=== PATIENT | female | born 1965 | race African-American/Black ===

== ENCOUNTER 2023-08-21 09:58 | Outpatient (AMB) | payer OTHER, SELFPAY ==
[2023-08-21 10:06] VITALS: BP 128/80; PULSE 80; RESP 14; TEMP 37.2; O2SAT 98; BMI 26.9
--- NOTE | 2023-08-21 10:06 | MHC.PC.OV ---
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 Rebolledo Last office visit/CPE: 6 mos CPE almost a year Acute issue(s): Diabetes -A1c today 08/21/23 9.4%. Low back pain w/ sciatica and had PT which helped. PMHx: DM2, Back pain, Asthma SurgHx: Tubal Ligation FHx: Mom: Blood disease. Pancreatic CA. Sister: Bone CA SocHx: Quit cigs > 20 years ago, EtOH: 1-2x per week 1-2 dr. EARLY Medical History (Updated 08/21/23 @ 10:42 by Lexx Mccormack) Back disorder Arthritis Diabetes Asthma Surgical History (Updated 08/21/23 @ 10:18 by Shelly Stapleton) H/O tubal ligation Family History (Updated 08/21/23 @ 10:23 by Shelly Stapleton) Mother Cancer Sister Cancer Social History Housing: House Alcohol intake: current Alcohol intake frequency: a few times a month Alcohol type: wine and hard liquor Patient Tobacco Use Status: Former Tobacco user Tobacco use type: Cigarette Years Smoked: 2 e-Cigarette/Vaping Use: Never Used service: No Current occupational status: employed Current occupation: [employer] Current occupational exposures/hazards: No Cognitive needs: No Hearing needs: No Vision needs: No Questionnaire PHQ-9 Over the last 2 weeks, how often have you been bothered by any of the following problems? 1. Little interest or pleasure in doing things: several days 2. Feeling down, depressed, or hopeless: several days 3. Trouble falling or staying asleep, or sleeping too much: several days 4. Feeling tired or having little energy: several days 5. Poor appetite or overeating: several days 6. Feeling bad about yourself - or that you are a failure or have let yourself or your family down: not at all 7. Trouble concentrating on things, such as reading the newspaper or watching television: several days 8. Moving or speaking so slowly that other people could have noticed. Or the opposite - being so fidgety or restless that you have been moving around a lot more than usual: not at all 9. Thoughts that you would be better off or of hurting yourself in some way: not at all Total score: 6 Depression Screening Interpretation: Positive 41557 - PHQ-9 Billing: Yes Source: Developed by Drs. Gavin Herrera, Sachi Snyder, Wayne Ann and colleagues, with an educational marina from [employer]. Thrive Questionnaire Date Thrive assessed: 08/21/23 I am a: Patient What is your living situation today?: I have a steady place to live Within the past 12 months, did the food you bought not last and you didn't have the money to get more?: Never true Within the past 12 months, did you worry whether your food would run out before you got money to buy more?: Never true Do you have trouble paying for medicines?: No Do you have trouble getting transportation to medical appointments?: No Do you have trouble paying your heating and electricity bill?: No Do you have trouble taking care of your child, family member or friend?: No Do you have trouble with day-to-day activities such as bathing, preparing meals, shopping, managing finances, etc.?: No Are you currently unemployed and looking for a job?: No Are you interested in more education?: No Please select the resources that you would like help with: None Currently or been in a relationship where the following occur: no concerns reported AUDIT C Alcohol Use Questionnaire (AUDIT-C) 1. How often do you have a drink containing alcohol?: 2-4 times a month 2. How many drinks containing alcohol do you have on a typical day when you are drinking?: 1 or 2 3. How often do you have six or more drinks on one occasion?: Never Total Score: 2 ASHLEY-7 AMB Questionnaire ASHLEY-7 Date ASHLEY - 7 assessed: 08/21/23 Feeling nervous, anxious, or on edge: 1 = Several days Not being able to stop or control worryin = Not at all Worrying too much about different things: 1 = Several days Trouble relaxin = Several days Being so restless that it is hard to sit still: 0 = Not at all Becoming easily annoyed or irritable: 0 = Not at all Feeling afraid as if something awful might happen: 1 = Several days Total ASHLEY-7 score (0-4 normal; 5-9 mild; 10-14 moderate; 15-21 severe): 4 Source: Developed by Drs. Gavin Herrera, Sachi Snyder, Wayne Ann and colleagues, with an educational marina from [employer]. ASHLEY-7 Assessment Billing ASHLEY-7 Assessment Tool: ASHLEY-7 Assessment 36136 Review of Systems Const Denies chills, Denies fatigue, Denies fever(s), Denies headache(s) and Denies weakness ENT Denies dizziness and Denies headache(s) Card Denies chest pain, Denies lightheadedness, Denies dyspnea and Denies other (Palpitations) Resp Denies cough, Denies dyspnea, Denies wheezing and Denies other ( shortness of breath) Musc Denies numbness and Denies tingling Neuro Denies dizziness, Denies headache(s), Denies numbness, Denies tingling, Denies paresthesias and Denies weakness Psych Denies anxiety and Denies depression Endo Denies fatigue Aller/Immun Denies wheezing Physical exam (Primary Care) Vital Signs: Last Vital Signs Temp 98.9 F 08/21/23 10:06 Pulse 80 08/21/23 10:06 Resp 14 08/21/23 10:06 BP 128/80 08/21/23 10:06 Pulse Ox 98 08/21/23 10:06 Oxygen Delivery Method Room Air 08/21/23 10:06 BMI result Body Mass Index 26.9 Tobacco/Smoking Status: Tobacco use Status Tobacco use date assessed 08/21/23 08/21/23 10:20 Patient Tobacco Use Status Former Tobacco user 08/21/23 10:24 Tobacco use type Cigarette 08/21/23 10:24 e-Cigarette/Vaping Use Never Used 08/21/23 10:24 PHQ-9: PHQ-9 Score PHQ-9: Total score 6 08/21/23 10:30 Depression Screening Interpretation: Positive Thrive Assessment: Date of Thrive Assessment Date Thrive assessed 08/21/23 08/21/23 10:26 Currently or been in a relationship where the following occur: no concerns reported Const General: no acute distress and well developed Nutritional Appearance: well nourished Orientation/consciousness: patient oriented x3 HENMT Head: Yes normocephalic and Yes atraumatic Eyes General: appearance normal, both eyes and all related structures Pupils: Equal, round and reactive pupils present EOM: EOMs intact bilaterally Resp Effort & Inspection: normal respiratory effort Auscultation: clear to auscultation bilaterally Cardio Rate: regular rate Rhythm: regular rhythm Heart sounds: S1 normal heart sound present, S2 normal heart sound present, no gallops, no murmurs and no rubs Neuro General: patient oriented x3 and gait normal Cranial nerves: Yes Equal, round and reactive pupils present Psych Affect: normal affect Results AMB Hemoglobin A1c AMB Hemoglobin A1c 9.4 % Last Edit by Shelly Stapleton on 08/21/23 10:31 Assessment and Plan Assessment & Plan (1) Diabetes: Code(s): E11.9 - Type 2 diabetes mellitus without complications Plan: A1c 9.4% today. Goal is less than 7.0% She notes that she has not been very consistent with her medication. She will work on improving consistency. Will recheck at her next visit in about 2 months If not significantly improved, will adjust her medications. (2) Back pain: Code(s): M54.9 - Dorsalgia, unspecified Plan: Chronic low back pain with radiation around right hip and right lower quadrant. Possible right hypogastric nerve impingement as well as sciatica. Referred to physiatry Continue ice and heat. Continue exercises learned in physical therapy Continue NSAIDs. (3) Asthma: Code(s): J45.909 - Unspecified asthma, uncomplicated Plan: History of asthma No exacerbation at present. Will give her a ProAir inhaler (4) Laboratory exam ordered as part of routine general medical examination: Code(s): Z00.00 - Encounter for general adult medical examination without abnormal findings Plan: Check labs Orders: Orders Comprehensive [place]. Panel Fast Today Z00.00 - Encounter for general adult medical examination without abnormal findings Lipid Panel Today Z00.00 - Encounter for general adult medical examination without abnormal findings Microalbumin, Random (w Creat) Today I10 - Essential (primary) hypertension TSH reflex Free T4 Today Z00.00 - Encounter for general adult medical examination without abnormal findings UA and rflx microscopic Today Z00.00 - Encounter for general adult medical examination without abnormal findings Vitamin B12 and Folate Today E53.8 - Deficiency of other specified B group vitamins Vitamin D 25-OH Total Today E55.9 - Vitamin D deficiency, unspecified Complete Blood Count Auto Diff Today Z00.00 - Encounter for general adult medical examination without abnormal findings Medications: New albuterol sulfate 90 mcg/actuation (ProAir HFA) 2 puffs inhalation Q4-6H PRN 8.5 grams 4RF shortness of breath or wheezing 30 days Coding Level of Care Code New Pt Level 3 (86362) Diagnoses Diabetes E11.9 Back pain M54.9 Asthma J45.909 Laboratory exam ordered as part of routine general medical examination Z00.00 Additional Codes ASHLEY-7 Assessment Billing - ASHLEY-7 Assessment Tool: ASHLEY-7 Assessment [id number] ([id number])
== END 2023-08-21 11:08 | disposition home or self-care (01) ==
PROVIDERS: PCP Family Medicine; Visit Provider Family Medicine
DX: E11.9 Type 2 diabetes mellitus without complications (principal); M54.9 Dorsalgia, unspecified; J45.909 Unspecified asthma, uncomplicated; Z00.00 Encounter for general adult medical examination without abnormal findings
CPT/HCPCS: 99203

== ENCOUNTER 2023-10-15 11:16 | Outpatient (REF) | payer OTHER, SELFPAY ==
[2023-10-15 13:15] LABS: MANUAL DIFF FLAG NO
[2023-10-15 13:18] LABS: Appearance Urine Clear; Color Urine Yellow; Glucose Urine UA Negative (Negative); Leukocyte Esterase Urine Negative (Negative); Nitrite Urine Negative (Negative); PH 5.5 (5.0-9.0); Urine Blood Negative (Negative); Urine Ketones Negative (Negative); Urine Protein Negative (Neg-Trace)
[2023-10-15 13:27] LABS: Basophils Percent Auto 0.4 % (0-2); Eosinophils Absolute Auto 0.2 X10*3/uL (0.0-0.4); Eosinophils Percent Auto 2.3 % (0-4); Hematocrit 39.9 % (37.0-47.0); Hemoglobin 13.2 g/dl (12.0-16.0); Imm Gran Abs Auto 0.03 X10*3/uL (0.00-0.03); Imm Gran Pct Auto 0.3 % (0.0-0.4); Lymphocytes Absolute Auto 1.8 X10*3/uL (1.2-4.9); Lymphocytes Percent Auto 19.2 % (20-40); Mean Corpuscular HGB Conc 33.1 g/dl (31.0-35.0); Mean Corpuscular Volume 90.7 fL (80.0-98.0); Mean Platelet Volume 11.8 fL (9.4-12.3); Monocytes Absolute Auto 0.8 X10*3/uL (0.1-1.2); Monocytes Percent Auto 8.5 % (2-11); Neutrophils Absolute Auto 6.3 x10*3/uL (2.0-8.3); Neutrophils Percent Auto 69.3 % (45-73); Platelet Count 250 X10*3/uL (160-400); Red Cell Distribution Width 14.7 % (11.0-16.0); White Blood Count 9.1 X10*3/uL (4.8-10.8)
[2023-10-15 14:20] LABS: Creatinine Urine 103.03 mg/dL; Microalbum/Creatinine Ratio Ur 28.1 ug/mg cr (<30)
[2023-10-15 14:34] LABS: Alanine Aminotransferase 18 U/L (0-31); Albumin Level 4.4 g/dL (3.5-5.0); Alkaline Phosphatase 77 U/L (39-117); Anion Gap 11 (12-20); Aspartate Amino Transferase 16 U/L (5-31); Bilirubin Total 0.5 mg/dL (0.0-1.0); Blood Urea Nitrogen 9 mg/dL (9-16); Calcium 9.8 mg/dL (8.4-10.2); Carbon Dioxide 29 mmol/L (22-29); Chloride 104 mmol/L (96-108); Cholesterol 249 mg/dL (<200); Estimated Glomerular Filt Rate > 60; Glucose Fasting 181 mg/dL (60-99); HDL Cholesterol 57 mg/dL (>40); LDL Cholesterol Calculated 171 mg/dL (<100); Potassium 4.5 mmol/L (3.3-5.1); Sodium 139 mmol/L (135-145); TSH reflex Free T4 0.91 uIU/mL (0.32-4.0); Total Protein 7.6 g/dL (6.5-8.0); Triglycerides 106 mg/dL (<150); Vitamin D 25-OH Total 17.4 ng/mL (>30)
[2023-10-15 14:36] LABS: Folate 12.3 ng/mL (> or = 4.0); Vitamin B12 1619 pg/mL (200-900)
== END 2023-10-15 11:17 | disposition home or self-care (01) ==
LOC: HO.HMGCLDS 11:16
PROVIDERS: PCP Family Medicine; Visit Provider Family Medicine
DX: Z00.00 Encounter for general adult medical examination without abnormal findings (principal); I10 Essential (primary) hypertension; E53.8 Deficiency of other specified B group vitamins; E55.9 Vitamin D deficiency, unspecified
CPT/HCPCS: 36415; 80053; 80061; 81003; 82043; 82306; 82570; 82607; 82746; 84443; 85025

== ENCOUNTER 2023-10-23 11:57 | Outpatient (AMB) | payer OTHER, SELFPAY ==
[2023-10-23 12:07] VITALS: BP 126/80; PULSE 81; O2SAT 99; BMI 26.6
--- NOTE | 2023-10-23 12:07 | A.OFFPC_ITS ---
Vital Signs 10/23/23 12:07 Height 5 ft 9 in Weight 180 lb 6 oz BMI 26.6 BP 126/80 Blood Pressure Location Lt brachial Position Sitting Pulse 81 Pulse Source Pulse Oximeter Pulse Oximetry (%) 99 Oxygen Delivery Method Room Air Intake Visit Reasons: CPE with f/u labs and health maintenance Intake Note: Patient is here for her physical today. She still has pain in the right side of her body. Patient would like refill of Metformin. Allergies ibuprofen Allergy (Severe, Verified 10/23/23 12:09) breathing concerns Tobacco use date assessed: 08/21/23 HPI CPE with f/u labs and health maintenance HPI Details 58 y/o female presents for a CPE with f/ u labs and health maintenance. Labs were drawn 10/15/23. Reviewed labs with pt. Fasting glucose of 181. Triglycerides 106. TC 249. LDL 171. HDL 57. Low vitamin D at 17.4 ng/mL. Also f/u diabetes. Last A1c 08/21/23 9.4% and pt stated she had not been consistent with her medications. A1c today 10/23/23 is 9.1%. She is on metformin 500mg b.i.d. She states she follows up with an eye doctor for a diabetic eye exam. She reports ongoing chronic low back pain with radiation around R hip and RLQ. Had referred her to physiatry. Pt reports last pap smear was at [facility] and had one the past 2 years. She states she had a recent colonoscopy and is up to date. [facility] Medical History (Updated 10/23/23 @ 12:59 by Lexx Mccormack) Back disorder Arthritis Diabetes Asthma Surgical History (Updated 08/21/23 @ 10:18 by Shelly Stapleton CMA) H/O tubal ligation Family History (Updated 08/21/23 @ 10:23 by Shelly Stapleton CMA) Mother Cancer Sister Cancer Social History (Updated 08/21/23 @ 10:24 by Shelly Stapleton CMA) Housing: House Alcohol intake: current Alcohol intake frequency: a few times a month Alcohol type: wine and hard liquor Patient Tobacco Use Status: Former Tobacco user Tobacco use type: Cigarette Years Smoked: 2 e-Cigarette/Vaping Use: Never Used service: No Current occupational status: employed Current occupation: [employer] Current occupational exposures/hazards: No Cognitive needs: No Hearing needs: No Vision needs: No Questionnaire Thrive Questionnaire Date Thrive assessed: 08/21/23 ASHLEY-7 AMB Questionnaire ASHLEY-7 Date ASHLEY - 7 assessed: 08/21/23 Source: Developed by Drs. Gavin Herrera, Sachi Snyder, Wayne Ann and colleagues, with an educational marina from [employer]. ACT Questionnaire In the past 4 weeks, how much of the time did your asthma keep you from getting as much done at work, school or at home?: Some of the time During the past 4 weeks, how often have you had shortness of breath?: More than once a day During the past 4 weeks, how often did your asthma symptoms wake you up at night or earlier than usual in the morning?: 2-3 nights a week During the past 4 weeks, how often have you had to use your rescue inhaler or nebulizer medication?: Not at all How would you rate your asthma control during the past 4 weeks?: Somewhat controlled ACT Interpretation: Positive Score: 14 Review of Systems Const Denies chills, Denies fatigue, Denies fever(s), Denies headache(s) and Denies weakness Eyes Denies change in vision ENT Denies dizziness, Denies headache(s), Denies hearing loss, Denies nasal congestion, Denies sinus pain, Denies sinus pressure and Denies sore throat Card Denies chest pain, Denies lightheadedness, Denies dyspnea and Denies other (palpitations) Resp Denies cough, Denies dyspnea and Denies wheezing GI Reports abdominal pain, Denies melena, Denies hematochezia, Denies change in bowel habits, Denies dyspepsia and Denies nausea Denies hematuria and Denies dysuria Musc Denies abnormal gait, Reports back pain, Denies myalgias, Denies arthralgias, Denies numbness and Denies tingling Skin/Breast Denies rash, Denies unusual bruising and Denies wounds Neuro Denies abnormal gait, Denies dizziness, Denies headache(s), Denies memory loss, Denies numbness, Denies Sensory deficit (Neuro), Denies tingling and Denies weakness Psych Denies anxiety, Denies depression and Denies memory loss Endo Denies cold intolerance, Denies fatigue, Denies heat intolerance, Reports polyd ipsia and Reports polyuria Flynn/Lymph Denies easy bleeding and Denies easy bruising Aller/Immun Denies wheezing Physical exam (Primary Care) Vital Signs: Last Vital Signs Pulse 81 10/23/23 12:07 BP 126/80 10/23/23 12:07 Pulse Ox 99 10/23/23 12:07 Oxygen Delivery Method Room Air 10/23/23 12:07 BMI result Body Mass Index 26.6 Tobacco/Smoking Status: Tobacco use Status Tobacco use date assessed 08/21/23 10/23/23 12:10 Patient Tobacco Use Status Former Tobacco user 10/23/23 12:10 Tobacco use type Cigarette 10/23/23 12:10 e-Cigarette/Vaping Use Never Used 10/23/23 12:10 Thrive Assessment: Date of Thrive Assessment Date Thrive assessed 08/21/23 10/23/23 12:10 Const General: no acute distress, well developed, alert and awake Nutritional Appearance: well nourished Orientation/consciousness: patient oriented x3 HENMT Head: Yes normocephalic and Yes atraumatic Ears: hearing grossly normal bilaterally and TM's normal bilaterally General nose exam: Normal external nose present and Normal nares present Mouth: Normal oral and palatal mucosa present and moist mucous membranes Teeth and gingiva: dentition normal Throat: Yes posterior oropharynx normal Eyes General: appearance normal, both eyes and all related structures Pupils: Equal, round and reactive pupils present and Pupil accommodation reflex normal EOM: EOMs intact bilaterally Neck Neck: Yes normal visual inspection, Yes no lymphadenopathy and Yes trachea midline Thyroid: Thyroid normal Carotids: no bruits Lymphatic: no lymphadenopathy noted Chest Chest palpation & inspection: normal inspection of the chest Resp Other: Two squeaks/wheezes on L side Effort & Inspection: normal respiratory effort Auscultation: clear to auscultation bilaterally Cardio Rate: regular rate Rhythm: regular rhythm Heart sounds: S1 normal heart sound present, S2 normal heart sound present, no gallops, no murmurs and no rubs Bruits: no abdominal aortic bruits and no carotid bruits GI Palpation (GI): No Abdominal aortic bruit present, Soft to palpation, nontender, No hepatosplenomegaly present and No Rebound tenderness present Auscultation: normal bowel sounds General: Yes no CVA tenderness Back/Spine/Pelvis Back: no CVA tenderness Cervical Spine: cervical ROM normal and No Cervical spine tenderness Thoracic/Lumbar Spine: thoraco-lumbar ROM normal, No pain with thoraco-lumbar ROM, No thoracic spinal tenderness and No lumbar spinal tenderness Skin Lesions: no lesions Rashes: no rashes Trauma: no lacerations or abrasions Wounds: no wounds Nails: normal Neuro General: patient oriented x3 Cranial nerves: Yes Equal, round and reactive pupils present Cognition (Neuro): normal cognition Gait exam (Neuro): Normal gait present Motor exam (neuro): 5/5 motor strength present throughout Sensory Exam: No Sensory deficit (Neuro) Deep tendon reflexes (DTR's): Right patellar reflex intensity grade: 2+ and Left patellar reflex intensity grade: 2+ Extrem General: Yes normal to inspection and No edema Psych Appearance: grossly normal Affect: normal affect Attitude: cooperative Thought process: Normal thought process present Results AMB Hemoglobin A1c AMB Hemoglobin A1c 9.1 % Last Edit by Lashawn Soto CMA on 10/23/23 12:27 Results Reviewed Results Reviewed: Laboratory Last Values Hgb A1c (Clinic) 9.1 % (4.0-6.0) H 10/23/23 12:25 Assessment and Plan Assessment & Plan (1) Adult general medical exam: Code(s): Z00.00 - Encounter for general adult medical examination without abnormal findings Plan: 58-year-old?female?presents?for?complete?physical?exam Encouraged?healthy?diet?with?active?lifestyle?and?exercise (2) Diabetes: Code(s): E11.9 - Type 2 diabetes mellitus without complications Plan: A1c?was?9.4%?at?last?check?and?now?9.1%?with?improved?compliance?with?medication . Will?continue?metformin?but?will?add?glipizide?ER?5?mg?daily Continue?to?work?at?a?diet?lower?in?sugars?and?starches (3) Hypercholesterolemia: Code(s): E78.00 - Pure hypercholesterolemia, unspecified Plan: LDL?cholesterol 171 We?discussed?starting?a?statin?medication?now?verses?trial?of?lifestyle?changes. Patient?wou ld?like?to?trial?lifestyle?changes?for?the?next?3?months.??We?discussed?that?if? she?is?not?able?to?significantly?improve?this?we?should?use?a?medication?and?pat ient?understands. (4) Low vitamin D level: Code(s): R79.89 - Other specified abnormal findings of blood chemistry Plan: Will?give?her?a?vitamin- D?supplement?for?the?next?couple?of?months?and?then?likely?taper?this?down?to?a? regular?daily?dose?of?about?2000?IU Will?recheck?vitamin-D?level?with?her?next?lab?draw (5) Screening for colon cancer: Code(s): Z12.11 - Encounter for screening for malignant neoplasm of colon Plan: Recent?colonoscopy.??Will?request?report She?is?up-to-date (6) Abdominal pain: Code(s): R10.9 - Unspecified abdominal pain Plan: Ongoing?right?lower?quadrant?abdominal?pain?which?patient?describes?as?projectin g?through?to?her?right?lower?back. 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 Doubt?GI etiology?though?this?is?possible Possible?hypogastric?nerve?impingement Patient?also?has?some?low?back?pain?which?I?think?is?separate?from?the ?pain?that?projects?through?to?her?lower?back. She?will?see?[facility]?for?that. (7) Asthma: Code(s): J45.909 - Unspecified asthma, uncomplicated Plan: Recent?viral?illness?and?patient?has?some?wheezing?in?her?left?lung?and?a?cough. ??She?says?she?had?a?viral?illness?last?week?and?it?is?getting?better. I?advised?she?use?her?albuterol?inhaler?as?needed. (8) Back pain: Code(s): M54.9 - Dorsalgia, unspecified Plan: As?above,?I?think?this?is?separate?from?the?abdominal?pain?that?projects?through ?to?her?low?back. 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 Orders: Orders AMB Hemoglobin A1c Today Z13.9 - Encounter for screening, unspecified MM tomosynthesis screening BI Today Z12.31 - Encounter for screening mammogram for malignant neoplasm of breast XR DEXA axial skeleton Today Z78.0 - Asymptomatic menopausal state Referrals Nurse Navigator Referral E11.9 - Type 2 diabetes mellitus without complications, E78.00 - Pure hypercholesterolemia, unspecified Medications: New glipizide ER 5 mg PO DAILY 30 days 30 tabs 3RF cholecalciferol (vitamin D3) 1,250 mcg PO QWEEK 28 days 4 caps 2RF Coding Level of Care Code Est Pt Level 3 (52942) Est Pt Prev Care 40-64y(63762) Diagnoses Adult general medical exam Z00.00 Diabetes E11.9 Hypercholesterolemia E78.00 Low vitamin D level R79.89 Screening for colon cancer Z12.11 Abdominal pain R10.9 Asthma J45.909 Back pain M54.9 Breast cancer screening by mammogram Z12.31 Screening for cervical cancer Z12.4
== END 2023-10-23 13:14 | disposition home or self-care (01) ==
PROVIDERS: PCP Family Medicine; Visit Provider Family Medicine
DX: Z00.00 Encounter for general adult medical examination without abnormal findings (principal); E11.9 Type 2 diabetes mellitus without complications; E78.00 Pure hypercholesterolemia, unspecified; R79.89 Other specified abnormal findings of blood chemistry; R10.9 Unspecified abdominal pain; J45.909 Unspecified asthma, uncomplicated; M54.9 Dorsalgia, unspecified
CPT/HCPCS: 83036; 99396

== ENCOUNTER 2023-12-18 09:01 | Outpatient (REF) | payer OTHER, SELFPAY ==
--- NOTE | ~2023-12-18 | MM_ITS ---
EXAMINATION: BONE DENSITOMETRY CLINICAL INDICATION: Menopause. COMPARISON: This is the patient's baseline examination. TECHNIQUE: Using a [employer] DXA System (software version: 13.1) manufactured by [employer] dual-energy x-ray absorptiometry was performed of the lumbar spine and left hip. The images are of good technical quality. Summary results are attached. FINDINGS: LEFT FEMUR, NECK: BMD 1.025 g/cm2, Z-score -0.1, T-score -0.1, normal. LEFT FEMUR, TOTAL: BMD 1.072 g/cm2, Z-score 0.1, T-score 0.5, normal. AP SPINE L1-L4 (excluding L3): The data of L1-L4 has been changed to exclude the L3 vertebral body, because at this level may cause overestimation of lumbar spine density. BMD 1.219 g/cm2, Z-score 0.4, T-score 0.4, normal. IDENTIFIED RISK FACTORS: Early menopause, osteoporosis, secondary osteoporosis. HISTORY OF FRACTURE: None listed. MEDICATIONS: None listed. MM/XR DEXA axial skeleton IMPRESSION: 1. DIAGNOSIS: Normal bone density based on the lowest T-score value of -0.1 in the femoral neck applying World Health Organization criteria. 2. 10-YEAR FRACTURE RISK PREDICTION, FRAX: According to the guidelines, FRAX calculation should only be performed on patients in the osteopenia bone density category. Therefore, FRAX was not performed on this patient. 3. Treatment Recommendations: NOF guidelines recommend consideration for treatment in postmenopausal women and men age 50 and older presenting with the following: -A hip or vertebral (clinical or morphometric) fracture. -T-score less than or equal to -2.5 at the femoral neck or spine after appropriate evaluation to exclude secondary causes. -Low bone mass at the hip or spine and a 10-year fracture probability by FRAX of greater than or equal to 3% for hip fracture or greater than or equal to 20% for major osteoporotic fracture based on the [place] adapted WHO algorithm. 4. Other Recommendations: All treatment decisions require clinical judgment and consideration of individual patient factors, including patient preferences, comorbidities, previous drug use, risk factors not captured in the FRAX model (e.g. frailty, falls, vitamin D deficiency, increased bone turnover, interval significant decline in bone density) and possible under or overestimation of fracture risk by FRAX. FUTURE SCAN RECOMMENDATION: People with diagnosed cases of osteoporosis or at high risk for fracture should have regular bone mineral density tests. For patients eligible for Medicare, routine testing is allowed once every 2 years. The testing frequency can be increased to one year for patients who have rapidly progressing disease, those who are receiving or discontinuing medical therapy to restore bone mass, or have additional risk factors.
== END 2023-12-18 09:02 | disposition home or self-care (01) ==
LOC: HO.MAMMO 09:01
PROVIDERS: Visit Provider Family Medicine
DX: Z12.31 Encounter for screening mammogram for malignant neoplasm of breast (principal); Z13.820 Encounter for screening for osteoporosis; Z78.0 Asymptomatic menopausal state
CPT/HCPCS: 77063; 77067; 77080

== ENCOUNTER → 2023-12-18 09:30 | Outpatient (BNV) | payer OTHER, SELFPAY | PROVIDERS: Visit Provider Radiology Diagnostic Radiology | DX: Z12.31 Encounter for screening mammogram for malignant neoplasm of breast (principal) | CPT/HCPCS: 77063; 77067 ==

== ENCOUNTER 2024-02-14 08:42 | Outpatient (REF) | payer OTHER, SELFPAY ==
[2024-02-14 10:06] LABS: Alanine Aminotransferase 16 U/L (0-31); Albumin Level 4.3 g/dL (3.5-5.0); Alkaline Phosphatase 76 U/L (39-117); Anion Gap 12 (12-20); Aspartate Amino Transferase 13 U/L (5-31); Bilirubin Total 0.3 mg/dL (0.0-1.0); Blood Urea Nitrogen 16 mg/dL (9-16); Calcium 9.7 mg/dL (8.4-10.2); Carbon Dioxide 29 mmol/L (22-29); Chloride 104 mmol/L (96-108); Cholesterol 224 mg/dL (<200); Estimated Glomerular Filt Rate > 60; Glucose Fasting 187 mg/dL (60-99); HDL Cholesterol 58 mg/dL (>40); LDL Cholesterol Calculated 135 mg/dL (<100); Potassium 4.7 mmol/L (3.3-5.1); Sodium 140 mmol/L (135-145); Total Protein 7.4 g/dL (6.5-8.0); Triglycerides 156 mg/dL (<150)
[2024-02-14 10:14] LABS: Vitamin D 25-OH Total 60.8 ng/mL (>30)
== END 2024-02-14 08:43 | disposition home or self-care (01) ==
LOC: HO.LAB 08:42
PROVIDERS: PCP Family Medicine; Visit Provider Family Medicine
DX: Z00.00 Encounter for general adult medical examination without abnormal findings (principal); E78.00 Pure hypercholesterolemia, unspecified; E55.9 Vitamin D deficiency, unspecified; R79.89 Other specified abnormal findings of blood chemistry
CPT/HCPCS: 36415; 80053; 80061; 82306

== ENCOUNTER 2024-03-17 09:44 | Outpatient (AMB) | payer OTHER, SELFPAY ==
[2024-03-17 09:49] VITALS: BP 128/72; PULSE 63; O2SAT 98; BMI 27.3
--- NOTE | 2024-03-17 09:49 | MHC.PC.OV ---
Vital Signs 03/17/24 09:49 Height 5 ft 9 in Weight 185 lb 2 oz BMI 27.3 BP 128/72 Blood Pressure Location Lt brachial Position Sitting Pulse 63 Pulse Source Pulse Oximeter Pulse Oximetry (%) 98 Oxygen Delivery Method Room Air Intake Visit Reasons: f/u hypercholesterolemia and diabetes Intake Note: Patient is here to follow up on hypercholesterolemia and diabetes, needs new blood sugar sugar devin and strips. She would like a freestyle Sung devin. She would also like refill on vitamin D3. She would like to talk about bilateral foot pain. Allergies ibuprofen Allergy (Severe, Verified 03/17/24 09:58) breathing concerns Tobacco use date assessed: 08/21/23 Dental Screening Dental Screen Date: 08/21/23 Did you have a dental visit in the last 12 months?: No Did you have a dental problem in the last 6 months where you did not have access to dental care?: No Was dental information given to patient?: Patient has dentist HPI f/u hypercholesterolemia and diabetes HPI Details 59 y/o female presents to f/u hypercholesterolemia and diabetes. Also f/u low vitamin D. Labs were drawn 02/14/24. Reviewed labs with pt. Fasting glucose of 187. Triglycerides 156. TC 224. LDL 135 which improved from 171 in September. HDL 58. Vitamin D level improved from 17.4 in September to 60.8. Last A1c 11/22/23 9.1%. Had added glipizide 5mg to her metformin. A1c today 03/17/24 is 9.1%. Pt has gained some weight since last office visit. Pt has complaints of bilateral foot pain. Pt describes pain as pins and needles and states she feels like she is walking on julio. Pt notes pain had been ongoing for more than a year. [facility] Medical History Back disorder Arthritis Diabetes Asthma Surgical History H/O tubal ligation Family History (Updated 03/17/24 @ 10:01 by Lashawn Soto CMA) Mother Cancer Sister Cancer Social History Housing: House Alcohol intake: current Alcohol intake frequency: a few times a month Alcohol type: wine and hard liquor Patient Tobacco Use Status: Former Tobacco user Tobacco use type: Cigarette Years Smoked: 2 e-Cigarette/Vaping Use: Never Used service: No Current occupational status: employed Current occupation: [employer] Current occupational exposures/hazards: No Cognitive needs: No Hearing needs: No Vision needs: No Questionnaire PHQ-9 Over the last 2 weeks, how often have you been bothered by any of the following problems? 1. Little interest or pleasure in doing things: not at all 2. Feeling down, depressed, or hopeless: not at all 3. Trouble falling or staying asleep, or sleeping too much: not at all 4. Feeling tired or having little energy: not at all 5. Poor appetite or overeating: not at all 6. Feeling bad about yourself - or that you are a failure or have let yourself or your family down: not at all 7. Trouble concentrating on things, such as reading the newspaper or watching television: not at all 8. Moving or speaking so slowly that other people could have noticed. Or the opposite - being so fidgety or restless that you have been moving around a lot more than usual: not at all 9. Thoughts that you would be better off or of hurting yourself in some way: not at all Total score: 0 Depression Screening Interpretation: Negative Depression Screening Done: Yes Source: Developed by Drs. Gavin Herrera, Sachi Snyder, Wayne Ann and colleagues, with an educational marina from [employer]. Thrive Questionnaire Date Thrive assessed: 08/21/23 AUDIT C Alcohol Use Questionnaire (AUDIT-C) 1. How often do you have a drink containing alcohol?: Monthly or less 2. How many drinks containing alcohol do you have on a typical day when you are drinking?: 1 or 2 3. How often do you have six or more drinks on one occasion?: Never Total Score: 1 ASHLEY-7 AMB Questionnaire ASHLEY-7 Date ASHLEY - 7 assessed: 03/17/24 Feeling nervous, anxious, or on edge: 0 = Not at all Not being able to stop or control worryin = Not at all Worrying too much about different things: 0 = Not at all Trouble relaxin = Not at all Being so restless that it is hard to sit still: 0 = Not at all Becoming easily annoyed or irritable: 0 = Not at all Feeling afraid as if something awful might happen: 0 = Not at all Total ASHLEY-7 score (0-4 normal; 5-9 mild; 10-14 moderate; 15-21 severe): 0 Source: Developed by Drs. Gavin Herrera, Sachi Snyder, Wayne Ann and colleagues, with an educational marina from [employer]. ACT Questionnaire In the past 4 weeks, how much of the time did your asthma keep you from getting as much done at work, school or at home?: None of the time During the past 4 weeks, how often have you had shortness of breath?: Not at all During the past 4 weeks, how often did your asthma symptoms wake you up at night or earlier than usual in the morning?: Not at all During the past 4 weeks, how often have you had to use your rescue inhaler or nebulizer medication?: Not at all How would you rate your asthma control during the past 4 weeks?: Well controlled Score: 24 Review of Systems Const Denies chills, Denies fatigue, Denies fever(s), Denies headache(s) and Denies weakness ENT Denies dizziness and Denies headache(s) Card Denies dyspnea Resp Denies cough, Denies dyspnea, Denies wheezing and Denies other (shortness of breath) Musc Denies numbness and Denies tingling Neuro Denies dizziness, Denies headache(s), Denies numbness, Denies tingling and Denies weakness Psych Denies anxiety and Denies depression Endo Denies fatigue Aller/Immun Denies wheezing Physical exam (Primary Care) Vital Signs: Last Vital Signs Pulse 63 03/17/24 09:49 BP 128/72 03/17/24 09:49 Pulse Ox 98 03/17/24 09:49 Oxygen Delivery Method Room Air 03/17/24 09:49 BMI result Body Mass Index 27.3 Tobacco/Smoking Status: Tobacco use Status Tobacco use date assessed 08/21/23 03/17/24 09:54 Patient Tobacco Use Status Former Tobacco user 03/17/24 09:54 Tobacco use type Cigarette 03/17/24 09:54 e-Cigarette/Vaping Use Never Used 03/17/24 09:54 PHQ-9: PHQ-9 Score PHQ-9: Total score 0 03/17/24 10:15 Depression Screening Interpretation: Negative Thrive Assessment: Date of Thrive Assessment Date Thrive assessed 08/21/23 03/17/24 09:54 Const General: well developed; No acute distress Nutritional Appearance: well nourished Orientation/consciousness: patient oriented x3 [facility] Head: Yes normocephalic and Yes atraumatic Eyes General: appearance normal, both eyes and all related structures Pupils: Equal, round and reactive pupils present EOM: EOMs intact bilaterally Resp Effort & Inspection: normal respiratory effort Auscultation: clear to auscultation bilaterally Cardio Rate: regular rate Rhythm: regular rhythm Heart sounds: S1 normal heart sound present, S2 normal heart sound present, no gallops, no murmurs and no rubs Neuro General: patient oriented x3 and gait normal Cranial nerves: Yes Equal, round and reactive pupils present Psych Affect: normal affect Results AMB Hemoglobin A1c AMB Hemoglobin A1c 9.1 % Last Edit by Lashawn Soto CMA on 03/17/24 10:17 Assessment and Plan Assessment & Plan (1) Diabetes: Code(s): E11.9 - Type 2 diabetes mellitus without complications Plan: A1c?still?9.1%?despite?adding?glipizide.??Goal?is?less?than?7.0%. She?has?gained?some?weight?since?last?visit?as?well. Encouraged?ongoing?diet?low?in?sugars?and?starches Encouraged?exercise?and?weight?loss Will?increase?metformin?from?500?mg?b.i.d.?to?750?mg?b.i.d..??Continue?glipizide?ER?5?mg?daily (2) Hypercholesterolemia: Code(s): E78.00 - Pure hypercholesterolemia, unspecified Plan: Lipids?are?still?significantly?elevated.??Will?discuss?at?her?next?visit (3) Low vitamin D level: Code(s): R79.89 - Other specified abnormal findings of blood chemistry Plan: Vitamin-D?is?improved Will?switch?her?vitamin-D?supplement?from?high-dose?weekly?cholecalciferol?to?a?daily?2000?IU?dose. (4) Bilateral foot pain: Code(s): M79.671 - Pain in right foot; M79.672 - Pain in left foot Plan: Bilateral?foot?paresthesias?likely?secondary?to?neuropathy?from?poorly?controlled?diabetes. Treating?diabetes Will?also?give?her?gabapentin?which?he?can?try?at?bedtime?and?if?it?is?helping?she?can?use?it?during?the?day?if?not?causing?too?much?drowsiness. (5) Screening for colon cancer: Code(s): Z12.11 - Encounter for screening for malignant neoplasm of colon Plan: Patient?says?she?will?get?report?as?we?have?tried?the?surrounding?hospitals?without?any?records?found. Orders: Orders AMB Hemoglobin A1c Today Z13.9 - Encounter for screening, unspecified Medications: New blood-glucose meter ([employer] Ultra2 Meter) As directed 1 ea 0RF gabapentin 300 mg PO BID 30 days 60 caps 2RF blood sugar diagnostic (ID[employer]Touch Ultra Test strips) To test blood sugar daily As directed, 90 days 100 ea 4RF E11.9 - Type 2 diabetes mellitus without complications lancets ([employer] Delica Safety Lancet) To test blood sugar daily, As directed, 90 days 100 ea 0RF E11.9 - Type 2 diabetes mellitus without complications cholecalciferol (vitamin D3) 50 mcg PO DAILY 30 days 30 caps 3RF Changed From metformin 500 mg PO BID 180 tabs 0RF To metformin 750 mg (1.5 x 500 mg) PO BID 90 days 270 tabs 2RF Discontinued cholecalciferol (vitamin D3) Discontinued Reason: Doctor's Order 1,250 mcg PO QWEEK 28 days 4 caps 2RF Coding Level of Care Code Est Pt Level 4 (41749) Diagnoses Diabetes E11.9 Hypercholesterolemia E78.00 Low vitamin D level R79.89 Bilateral foot pain M79.671; M79.672 Screening for colon cancer Z12.11
== END 2024-03-17 10:30 | disposition home or self-care (01) ==
PROVIDERS: PCP Family Medicine; Visit Provider Family Medicine
DX: E11.9 Type 2 diabetes mellitus without complications (principal); E78.00 Pure hypercholesterolemia, unspecified; R79.89 Other specified abnormal findings of blood chemistry; M79.671 Pain in right foot; M79.672 Pain in left foot
CPT/HCPCS: 83036; 99214

== ENCOUNTER 2024-08-06 09:31 | Outpatient (AMB) | payer OTHER, SELFPAY ==
--- NOTE | 2024-08-06 09:33 | A.OFFVIS_ITS ---
Vital Signs 08/06/24 09:35 Height 5 ft 9 in Weight 189 lb 9.561 oz BMI 28.0 BP 126/70 Blood Pressure Location Rt brachial Position Sitting Pulse 71 Pulse Source Pulse Oximeter Intake Visit Reasons: DM/LVM Intake Note: NEW Patient presents today to establish treatment for Type 2 Diabetes Mellitus: Last Diabetic eye exam was on: DUE Last Podiatry exam was on: Does not see a Hose Maker Most recent HbA1c: 8.2%, 08/06/2024 Random Glucose- 141 mg/dL, Today Exploitation Analyst Required: No Accompanied by: Self / Same As Patient Allergies ibuprofen Allergy (Severe, Verified 08/06/24 09:34) breathing concerns Medication List - Last Reconciled 08/06/24 by Helen Santana MD acetaminophen 1,000 mg PO Q6H PRN albuterol sulfate 90 mcg/actuation (ProAir HFA) 2 puffs inhalation Q4-6H PRN 30 days blood sugar diagnostic ([employer] Ultra Test strips) To test blood sugar daily As directed, 90 days blood-glucose meter ([employer] Ultra2 Meter) As directed cholecalciferol (vitamin D3) 50 mcg PO DAILY 30 days gabapentin 300 mg PO BID 30 days glipizide ER 5 mg PO DAILY 30 days lancets ([employer] Delica Safety Lancet) To test blood sugar daily, As directed, 90 days metformin 750 mg (1.5 x 500 mg) PO BID 90 days naproxen sodium (Aleve) 440 mg PO DAILY HPI Comments Details: 59 year old female with type 2 diabetes presenting for follow up Medical history: HTN, HLD and depression Initially diagnosed with T2DM- 56 years old Current medications: Metformin 750 mg twice daily (increased in february), glipizde ER 5mg daily POC A1C 8.2%. from 9.1% in February Micro/macrovascular complications: neuropathy. On gabapentin Discussed ROLAND, statin recommendations Denies any low sugars or symptoms of lows. Has hypoglycemia awareness. Not much diabetes in the family Eye exam is due-she will call to schedule She has seen a annual giving officer in the past with attention to diabetes Declines diabetic education ROS CONSTITUTIONAL: Denies weight loss, fever and chills. HEENT: Denies changes in vision and hearing. RESPIRATORY: Denies SOB and cough. CV: Denies palpitations and CP GI: Denies abdominal pain, nausea, vomiting and diarrhea. : Denies dysuria and urinary frequency. MSK: Denies new myalgia and joint pain. SKIN: Denies rash and pruritus. NEUROLOGICAL: Denies headache PSYCHIATRIC: Denies recent changes in mood. PHYSICAL EXAM: GENERAL: Alert and oriented x 3. NAD EYES: EOMI. Anicteric. HENT: Moist mucous membranes. Thyroid nodular right LUNGS: Clear to auscultation bilaterally. CARDIOVASCULAR: Regular rate and rhythm. No murmur. No JVD. ABDOMEN: Soft, non-tender +bs EXTREMITIES: No edema. Non-tender. SKIN: No rashes or lesions. Warm. NEUROLOGIC: No focal neurological deficits. CN II-XII grossly intact PSYCHIATRIC: Cooperative. Appropriate mood and affect [facility] Medical History Back disorder Arthritis Diabetes Asthma Surgical History H/O tubal ligation Family History Mother Cancer Sister Cancer Social History Housing: House Alcohol intake: current Alcohol intake frequency: a few times a month Alcohol type: wine and hard liquor Patient Tobacco Use Status: Former Tobacco user Tobacco use type: Cigarette Years Smoked: 2 e-Cigarette/Vaping Use: Never Used service: No Current occupational status: employed Current occupation: [employer] Current occupational exposures/hazards: No Cognitive needs: No Hearing needs: No Vision needs: No Physical Exam Vital Signs: Last Vital Signs Pulse 71 08/06/24 09:35 BP 126/70 08/06/24 09:35 BMI result Body Mass Index 28.0 Results AMB Hemoglobin A1c AMB Hemoglobin A1c 8.2 % Last Edit by GIAN Park on 08/06/24 09:52 Results Reviewed Results Reviewed: Laboratory Last Values Glucose (Clinic) 141 mg/dL (60-115) H 08/06/24 09:40 Hgb A1c (Clinic) 8.2 % (4.0-6.0) H 08/06/24 09:51 Assessment & Plan Assessment & Plan (1) Diabetes: Code(s): E11.9 - Type 2 diabetes mellitus without complications Category: Medical Qualifiers: Diabetes mellitus complication status: with hyperglycemia Diabetes mellitus mcfp insulin use: without emt intermediate use Diabetes mellitus type: type 2 Qualified Code(s): E11.65 - Type 2 diabetes mellitus with hyperglycemia Plan: Improved but still suboptimal control Discussed goal A1C <7.0%. Discussed the A1C test itself. Discussed recommendation for ROLAND and statin. Discussed LDL goal<100 No hypoglycemia. Will increase metformin to 1000mg twice daily and glipizide to 10mg daily She will return in one month with log of fasting blood glucose and meter Agrees to call eye doctor for visit (2) Type 2 diabetes mellitus: Code(s): E11.9 - Type 2 diabetes mellitus without complications Category: Medical Qualifiers: Diabetes mellitus complication detail: with polyneuropathy Diabetes mellitus complication status: with neurologic complications Diabetes mellitus emt intermediate insulin use: without mcfp use Qualified Code(s): E11.42 - Type 2 diabetes mellitus with diabetic polyneuropathy Plan: see above (3) Neuropathy due to type 2 diabetes mellitus: Code(s): E11.40 - Type 2 diabetes mellitus with diabetic neuropathy, unspecified Category: Medical Plan: Improve glycemic control. Refilled gabapentin. Orders: Orders AMB Hemoglobin A1c Today E11.9 - Type 2 diabetes mellitus without complications Medications: New metformin 1,000 mg PO BID 180 tabs 3RF 90 days glipizide ER 10 mg PO DAILY 90 tabs 3RF Changed From gabapentin 300 mg PO BID 30 days 60 caps 2RF To gabapentin 300 mg PO BID 180 caps 3RF 90 days Discontinued metformin Discontinued Reason: Doctor's Order 750 mg (1.5 x 500 mg) PO BID 90 days 270 tabs 2RF glipizide ER Discontinued Reason: Doctor's Order 5 mg PO DAILY 30 days 30 tabs 1RF Coding Level of Care Code Est Pt Level 5 (10179) Diagnoses Type 2 diabetes mellitus with hyperglycemia, without long-term current use of insulin E11.65 Diabetes mellitus complication status: with hyperglycemia Diabetes mellitus mcfp insulin use: without mcfp use Diabetes mellitus type: type 2 Type 2 diabetes mellitus with diabetic polyneuropathy, without long-term current use of insulin E11.42 Diabetes mellitus complication detail: with polyneuropathy Diabetes mellitus complication status: with neurologic complications Diabetes mellitus emt intermediate insulin use: without emt intermediate use Neuropathy due to type 2 diabetes mellitus E11.40 Time Spent (min) 50
[2024-08-06 09:35] VITALS: BP 126/70; PULSE 71; BMI 28.0
[2024-08-06 09:44] LABS: Glucose, Whole Blood 141 mg/dL (60-115)
== END 2024-08-06 10:15 | disposition home or self-care (01) ==
PROVIDERS: PCP Family Medicine; Visit Provider Internal Medicine
DX: E11.65 Type 2 diabetes mellitus with hyperglycemia (principal); E11.42 Type 2 diabetes mellitus with diabetic polyneuropathy; E11.40 Type 2 diabetes mellitus with diabetic neuropathy, unspecified
CPT/HCPCS: 99215

== ENCOUNTER → 2024-08-06 09:31 | Outpatient (BNVA) | payer OTHER, SELFPAY | PROVIDERS: PCP Family Medicine; Visit Provider Internal Medicine | DX: E11.65 Type 2 diabetes mellitus with hyperglycemia (principal); E11.42 Type 2 diabetes mellitus with diabetic polyneuropathy; Z79.84 Long term (current) use of oral hypoglycemic drugs | CPT/HCPCS: 82947; 83036 ==

== ENCOUNTER 2024-09-10 09:05 | Outpatient (AMB) | payer OTHER, SELFPAY ==
--- NOTE | 2024-09-10 09:06 | A.OFFVIS_ITS ---
Vital Signs 09/10/24 09:08 Height 5 ft 9 in Weight 191 lb 12.835 oz BMI 28.3 BP 128/86 Blood Pressure Location Rt brachial Position Sitting Pulse 74 Pulse Source Pulse Oximeter Intake Visit Reasons: DM/CONFIRMED Intake Note: Patient presents today for a follow-up on Type 2 Diabetes Mellitus: Last Diabetic eye exam was on: DUE Last Podiatry exam was on: Does not see a Inspector [employer] Most recent HbA1c: 8.2%, 08/06/2024 Random Glucose- 149 mg/dL, Today Etl Developer Required: No Accompanied by: Self / Same As Patient Allergies ibuprofen Allergy (Severe, Verified 08/06/24 09:34) breathing concerns HPI Comments Details: 59 year old female with type 2 diabetes presenting for follow up Medical history: HTN, HLD and depression Initially diagnosed with T2DM- 56 years old Current medications: Metformin 1000mg once daily-twice daily prescribed but she could not tolerate, glipizde ER 10mg daily. POC A1C last month 8.2%. from 9.1% in February. Didnt bring meter. Highest fasting was 170 said most readings ~140. Micro/macrovascular complications: neuropathy. On gabapentin Discussed ROLAND, statin recommendations Denies any low sugars or symptoms of lows. Has hypoglycemia awareness. Not much diabetes in the family Eye exam is due-she will call to schedule-forgot She has seen a machinist job setter in the past with attention to diabetes Declines diabetic education ROS CONSTITUTIONAL: Denies weight loss, fever and chills. HEENT: Denies changes in vision and hearing. RESPIRATORY: Denies SOB and cough. CV: Denies palpitations and CP GI: Denies abdominal pain, nausea, vomiting and diarrhea. : Denies dysuria and urinary frequency. MSK: Denies new myalgia and joint pain. SKIN: Denies rash and pruritus. NEUROLOGICAL: Denies headache PSYCHIATRIC: Denies recent changes in mood. PHYSICAL EXAM: GENERAL: Alert and oriented x 3. NAD EYES: EOMI. Anicteric. HENT: Moist mucous membranes. Thyroid nodular right LUNGS: Clear to auscultation bilaterally. CARDIOVASCULAR: Regular rate and rhythm. No murmur. No JVD. ABDOMEN: Soft, non-tender +bs EXTREMITIES: No edema. Non-tender. SKIN: No rashes or lesions. Warm. NEUROLOGIC: No focal neurological deficits. CN II-XII grossly intact PSYCHIATRIC: Cooperative. Appropriate mood and affect [facility] Medical History Back disorder Arthritis Diabetes Asthma Surgical History H/O tubal ligation Family History Mother Cancer Sister Cancer Social History Housing: House Alcohol intake: current Alcohol intake frequency: a few times a month Alcohol type: wine and hard liquor Patient Tobacco Use Status: Former Tobacco user Tobacco use type: Cigarette Years Smoked: 2 e-Cigarette/Vaping Use: Never Used service: No Current occupational status: employed Current occupation: [employer] Current occupational exposures/hazards: No Cognitive needs: No Hearing needs: No Vision needs: No Physical Exam Vital Signs: Last Vital Signs Pulse 74 09/10/24 09:08 BP 128/86 09/10/24 09:08 BMI result Body Mass Index 28.3 Assessment & Plan Assessment & Plan (1) Type 2 diabetes mellitus: Code(s): E11.9 - Type 2 diabetes mellitus without complications Category: Medical Qualifiers: Diabetes mellitus terminal block assembler insulin use: without terminal block assembler use Diabetes mellitus complication status: with neurologic complications Diabetes mellitus complication detail: with polyneuropathy Qualified Code(s): E11.42 - Type 2 diabetes mellitus with diabetic polyneuropathy Plan: Improved control. Didnt bring glucometer today. She will return in 2 months when A1C is due Medications: Changed From blood sugar diagnostic (OneTouch Ultra Test strips) To test blood sugar daily As directed, 90 days 100 ea 4RF E11.9 - Type 2 diabetes mellitus without complications To OneTouch Ultra Test (blood sugar diagnostic) To test blood sugar daily, 100 ea 4RF NS E11.9 - Type 2 diabetes mellitus without complications Refilled blood sugar diagnostic (OneTouch Ultra Test strips) To test blood sugar daily As directed, 90 days 100 ea 4RF E11.9 - Type 2 diabetes mellitus without complications Coding Level of Care Code Est Pt Level 3 (51037) Diagnoses Type 2 diabetes mellitus with diabetic polyneuropathy, without long-term current use of insulin E11.42 Diabetes mellitus senior living insulin use: without terminal block assembler use Diabetes mellitus complication status: with neurologic complications Diabetes mellitus complication detail: with polyneuropathy
[2024-09-10 09:08] VITALS: BP 128/86; PULSE 74; BMI 28.3
[2024-09-10 09:16] LABS: Glucose, Whole Blood 149 mg/dL (60-115)
== END 2024-09-10 09:22 | disposition home or self-care (01) ==
PROVIDERS: PCP Family Medicine; Visit Provider Internal Medicine
DX: E11.42 Type 2 diabetes mellitus with diabetic polyneuropathy (principal)

== ENCOUNTER → 2024-09-10 09:05 | Outpatient (BNVA) | payer OTHER, SELFPAY | PROVIDERS: PCP Family Medicine; Visit Provider Internal Medicine | DX: E11.42 Type 2 diabetes mellitus with diabetic polyneuropathy (principal) | CPT/HCPCS: 82947 ==

== ENCOUNTER 2024-11-12 09:03 | Outpatient (AMB) | payer OTHER, SELFPAY ==
[2024-11-12 09:14] VITALS: BP 140/82; PULSE 86; BMI 29.0
--- NOTE | 2024-11-12 09:14 | MHC.OFFVIS ---
Vital Signs 11/12/24 09:14 Height 5 ft 9 in Weight 196 lb 3.382 oz BMI 29.0 BP 140/82 H Blood Pressure Location Lt brachial Position Sitting Pulse 86 Pulse Source Pulse Oximeter Intake Visit Reasons: DM/Left vm Intake Note: Patient present today for Type 2 Diabetes Mellitus. Last Diabetic eye exam: 3 years ago Last Podiatry Visit: Doesn't have one Random Glucose: 164 mg/dl HgA1C: 8.6% Electronics Specialist Required: No Accompanied by: Self / Same As Patient Allergies ibuprofen Allergy (Severe, Verified 11/12/24 09:20) breathing concerns HPI Comments Details: 59 year old female with type 2 diabetes presenting for follow up Medical history: HTN, HLD and depression Initially diagnosed with T2DM- 56 years old Current medications: Metformin 1000mg once daily-twice daily prescribed but she could not tolerate-she is tolerating 1000mg once daily, glipizde ER 10mg daily. POC A1C -8.6% from 8.2%. from 9.1%. Didn't bring meter-her one touch test strips were too expensive so she has not been checking readings. Micro/macrovascular complications: neuropathy. On gabapentin Discussed ROLAND, statin recommendations Denies any low sugars or symptoms of lows. Has hypoglycemia awareness. Not much diabetes in the family Eye exam is due-she will call to schedule-forgot She has seen a blowing engineer in the past with attention to diabetes Declines diabetic education ROS CONSTITUTIONAL: Denies weight loss, fever and chills. HEENT: Denies changes in vision and hearing. RESPIRATORY: Denies SOB and cough. CV: Denies palpitations and CP GI: Denies abdominal pain, nausea, vomiting and diarrhea. : Denies dysuria and urinary frequency. MSK: Denies new myalgia and joint pain. SKIN: Denies rash and pruritus. NEUROLOGICAL: Denies headache PSYCHIATRIC: Denies recent changes in mood. PHYSICAL EXAM: GENERAL: Alert and oriented x 3. NAD EYES: EOMI. Anicteric. HENT: Moist mucous membranes. Thyroid nodular right LUNGS: Clear to auscultation bilaterally. CARDIOVASCULAR: Regular rate and rhythm. No murmur. No JVD. ABDOMEN: Soft, non-tender +bs EXTREMITIES: No edema. Non-tender. SKIN: No rashes or lesions. Warm. NEUROLOGIC: No focal neurological deficits. CN II-XII grossly intact PSYCHIATRIC: Cooperative. Appropriate mood and affect [facility] Medical History Back disorder Arthritis Diabetes Asthma Surgical History H/O tubal ligation Family History Mother Cancer Sister Cancer Social History Housing: House Alcohol intake: current Alcohol intake frequency: a few times a month Alcohol type: wine and hard liquor Patient Tobacco Use Status: Former Tobacco user Tobacco use type: Cigarette Years Smoked: 2 e-Cigarette/Vaping Use: Never Used service: No Current occupational status: employed Current occupation: [employer] Current occupational exposures/hazards: No Cognitive needs: No Hearing needs: No Vision needs: No Physical Exam Vital Signs: Last Vital Signs Pulse 86 11/12/24 09:14 BP 140/82 H 11/12/24 09:14 BMI result Body Mass Index 29.0 Results AMB Hemoglobin A1c AMB Hemoglobin A1c 8.6 % Last Edit by GIAN Manuel on 11/12/24 09:31 Results Reviewed Results Reviewed: Laboratory Last Values Glucose (Clinic) 164 mg/dL (60-115) H 11/12/24 09:22 Hgb A1c (Clinic) 8.6 % (4.0-6.0) H 11/12/24 09:24 Assessment & Plan Assessment & Plan (1) Type 2 diabetes mellitus: Code(s): E11.9 - Type 2 diabetes mellitus without complications Category: Medical Qualifiers: Diabetes mellitus complication detail: with polyneuropathy Diabetes mellitus complication status: with neurologic complications Diabetes mellitus longterm insulin use: without oysterman use Qualified Code(s): E11.42 - Type 2 diabetes mellitus with diabetic polyneuropathy Plan: Uncontrolled. Increase glipizide to 20mg daily. continue metformin 1000mg daily. Return in 3-4 weeks. Freestyle ordered Orders: Orders AMB Hemoglobin A1c Today E11.42 - Type 2 diabetes mellitus with diabetic polyneuropathy, Z13.9 - Encounter for screening, unspecified Medications: New FreeStyle Lancets (lancets) once daily 100 ea 3RF NS E11.42 - Type 2 diabetes mellitus with diabetic polyneuropathy FreeStyle Lite Meter (blood-glucose meter) once daily 1 ea 0RF NS E11.42 - Type 2 diabetes mellitus with diabetic polyneuropathy FreeStyle Lite Strips (blood sugar diagnostic) As directed 100 ea 3RF NS E11.42 - Type 2 diabetes mellitus with diabetic polyneuropathy Changed From glipizide ER 10 mg PO DAILY 90 tabs 3RF To glipizide ER 20 mg (2 x 10 mg) PO DAILY 90 days 180 tabs 3RF From metformin 1,000 mg PO BID 90 days 180 tabs 3RF To metformin 1,000 mg PO DAILY 90 days 90 tabs 3RF Coding Level of Care Code Est Pt Level 4 (55636) Diagnoses Type 2 diabetes mellitus with diabetic polyneuropathy, without long-term current use of insulin E11.42 Diabetes mellitus complication detail: with polyneuropathy Diabetes mellitus complication status: with neurologic complications Diabetes mellitus longterm insulin use: without longterm use
[2024-11-12 09:25] LABS: Glucose, Whole Blood 164 mg/dL (60-115)
== END 2024-11-12 09:45 | disposition home or self-care (01) ==
PROVIDERS: PCP Family Medicine; Visit Provider Internal Medicine
DX: Z13.9 Encounter for screening, unspecified (principal); E11.42 Type 2 diabetes mellitus with diabetic polyneuropathy

== ENCOUNTER 2024-12-24 09:21 | Outpatient (AMB) | payer OTHER, SELFPAY ==
--- NOTE | 2024-12-24 09:22 | MHC.OFFVIS ---
Vital Signs 12/24/24 09:24 Height 5 ft 9 in Weight 189 lb 13.088 oz BMI 28.0 BP 160/90 H Blood Pressure Location Lt brachial Position Sitting Pulse 60 Pulse Source Pulse Oximeter Intake Visit Reasons: med change check Intake Note: Patient present today for Type 2 Diabetes Mellitus Last Diabetic eye exam: 12/23/24 Last Podiatry Visit: Doesn't have one Random Glucose: 213 mg/dl HgA1C: 8.6% 11/12/24 Punch Press Setter Required: No Accompanied by: Self / Same As Patient Allergies ibuprofen Allergy (Severe, Verified 11/12/24 09:20) breathing concerns HPI Comments Details: 59 year old female with type 2 diabetes presenting for follow up Medical history: HTN, HLD and depression Initially diagnosed with T2DM- 56 years old Current medications: Metformin 1000mg once daily-twice daily prescribed but she could not tolerate-she is tolerating 1000mg once daily, glipizde ER 20mg daily. POC A1C -8.6% 11/12 from 8.2%. from 9.1%. Didn't bring meter-her one touch test strips were too expensive so she has not been checking readings. She was recently evaluated at [facility] for shortness of breath. Found to have afib, flu. Started on eliquis. Underlying asthma -still feels breathing is tight. Is in afib today rate controlled, 80s during my exam. Is awaiting cardiology consult-placed. Needs f/up pcp-message sent Micro/macrovascular complications: neuropathy. On gabapentin Discussed ROLAND, statin recommendations Denies any low sugars or symptoms of lows. Has hypoglycemia awareness. Not much diabetes in the family Eye exam is due-she will call to schedule-forgot She has seen a spin instructor in the past with attention to diabetes Declines diabetic education ROS CONSTITUTIONAL: Denies weight loss, fever and chills. HEENT: Denies changes in vision and hearing. RESPIRATORY: Denies SOB and cough. CV: Denies palpitations and CP GI: Denies abdominal pain, nausea, vomiting and diarrhea. : Denies dysuria and urinary frequency. MSK: Denies new myalgia and joint pain. SKIN: Denies rash and pruritus. NEUROLOGICAL: Denies headache PSYCHIATRIC: Denies recent changes in mood. PHYSICAL EXAM: GENERAL: Alert and oriented x 3. NAD EYES: EOMI. Anicteric. HENT: Moist mucous membranes. Thyroid nodular right LUNGS: Clear to auscultation bilaterally. CARDIOVASCULAR: Regular rate and rhythm. No murmur. No JVD. ABDOMEN: Soft, non-tender +bs EXTREMITIES: No edema. Non-tender. SKIN: No rashes or lesions. Warm. NEUROLOGIC: No focal neurological deficits. CN II-XII grossly intact PSYCHIATRIC: Cooperative. Appropriate mood and affect [facility] Medical History Back disorder Arthritis Diabetes Asthma Surgical History H/O tubal ligation Family History Mother Cancer Sister Cancer Social History Housing: House Alcohol intake: current Alcohol intake frequency: a few times a month Alcohol type: wine and hard liquor Patient Tobacco Use Status: Former Tobacco user Tobacco use type: Cigarette Years Smoked: 2 e-Cigarette/Vaping Use: Never Used service: No Current occupational status: employed Current occupation: [employer] Current occupational exposures/hazards: No Cognitive needs: No Hearing needs: No Vision needs: No Physical Exam Vital Signs: Last Vital Signs Pulse 60 12/24/24 09:24 BP 160/90 H 12/24/24 09:24 BMI result Body Mass Index 28.0 Results Reviewed Results Reviewed: Laboratory Last Values Glucose (Clinic) 213 mg/dL (60-115) H 12/24/24 09:32 Assessment & Plan Assessment & Plan (1) Type 2 diabetes mellitus: Code(s): E11.9 - Type 2 diabetes mellitus without complications Category: Medical Qualifiers: Diabetes mellitus complication detail: with polyneuropathy Diabetes mellitus complication status: with neurologic complications Diabetes mellitus halfway insulin use: without halfway use Qualified Code(s): E11.42 - Type 2 diabetes mellitus with diabetic polyneuropathy Plan: she has not been checking readings. She will follow up here for diabetes (2) Atrial fibrillation: Code(s): I48.91 - Unspecified atrial fibrillation Category: Medical Qualifiers: Atrial fibrillation type: unspecified Qualified Code(s): I48.91 - Unspecified atrial fibrillation Plan: continue eliquis PCP follow up. cardiology consult placed. started 12.5mg metoprolol Asthma exacerbation-prednisone and zpack sent Orders: Referrals Cardiology Referral I48.91 - Unspecified atrial fibrillation Medications: New metoprolol succinate ER 12.5 mg (1/2 x 25 mg) PO DAILY 90 tabs 3RF prednisone 40 mg (2 x 20 mg) PO DAILY 10 tabs 0RF 5 days azithromycin For 250 mg dose pack: take 500 mg today (day 1), then 250 mg for 4 days (days 2-5) PO 6 tabs 0RF Coding Level of Care Code Est Pt Level 5 (98863) Diagnoses Type 2 diabetes mellitus with diabetic polyneuropathy, without long-term current use of insulin E11.42 Diabetes mellitus complication detail: with polyneuropathy Diabetes mellitus complication status: with neurologic complications Diabetes mellitus continuous churn buttermaker insulin use: without continuous churn buttermaker use Atrial fibrillation, unspecified type I48.91 Atrial fibrillation type: unspecified Time Spent (min) 44
[2024-12-24 09:24] VITALS: BP 160/90; PULSE 60; BMI 28.0
[2024-12-24 09:46] LABS: Glucose, Whole Blood 213 mg/dL (60-115)
== END 2024-12-24 09:51 | disposition home or self-care (01) ==
PROVIDERS: PCP Family Medicine; Visit Provider Internal Medicine
DX: E11.42 Type 2 diabetes mellitus with diabetic polyneuropathy (principal); I48.91 Unspecified atrial fibrillation

== ENCOUNTER → 2024-12-24 09:21 | Outpatient (BNVA) | payer OTHER, SELFPAY | PROVIDERS: PCP Family Medicine; Visit Provider Internal Medicine | DX: E11.42 Type 2 diabetes mellitus with diabetic polyneuropathy (principal); I48.91 Unspecified atrial fibrillation; Z79.01 Long term (current) use of anticoagulants; Z79.84 Long term (current) use of oral hypoglycemic drugs | CPT/HCPCS: 82947 ==

== ENCOUNTER 2024-12-26 13:13 | Outpatient (AMB) | payer OTHER, SELFPAY ==
[2024-12-26 13:15] VITALS: BP 174/80; PULSE 75; BMI 28.1
--- NOTE | 2024-12-26 13:15 | A.OFFVIS_ITS ---
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/ [employer] Design Drafter Required: No Accompanied by: Self / Same As Patient Allergies ibuprofen Allergy (Severe, Verified 11/12/24 09:20) breathing concerns Medication List - Last Reconciled 12/26/24 by Sam Kimble MD acetaminophen 1,000 mg PO Q6H PRN albuterol sulfate 90 mcg/actuation (ProAir HFA) 2 puffs inhalation Q4-6H PRN 30 days apixaban (Eliquis) 5 mg PO BID azithromycin For 250 mg dose pack: take 500 mg today (day 1), then 250 mg for 4 days (days 2-5) PO blood-glucose meter (OneTouch Ultra2 Meter) As directed cholecalciferol (vitamin D3) 50 mcg PO DAILY 30 days FreeStyle Lancets (lancets) once daily NS FreeStyle Lite Meter (blood-glucose meter) once daily NS FreeStyle Lite Strips (blood sugar diagnostic) once daily NS gabapentin 300 mg PO BID 90 days glipizide ER 10 mg PO DAILY lancets (Onetouch Delica Safety Lancet) To test blood sugar daily, As directed, 90 days metformin 1,000 mg PO DAILY 90 days metoprolol succinate ER 12.5 mg (1/2 x 25 mg) PO DAILY OneTouch Ultra Test (blood sugar diagnostic) To test blood sugar daily, NS prednisone 40 mg (2 x 20 mg) PO DAILY 5 days HPI Comments Details: Serenity is here for consultation regarding atrial fibrillation. He recently was not feeling well and was detected to have influenza and in that setting, it seems she also had atrial fibrillation. Seen at [facility] ER. She was having various symptoms like chest pressure, palpitations and overall not feeling well. Otherwise, no previous history of any cardiac issues. No coronary disease or myocardial infarction. Possible irregular heart rates in the past but very vague history. Has many comorbidities including diabetes and possible hypertension. [facility] Medical History Back disorder Arthritis Diabetes Asthma Surgical History H/O tubal ligation Family History Mother Cancer Sister Cancer Social History Housing: House Alcohol intake: current Alcohol intake frequency: a few times a month Alcohol type: wine and hard liquor Patient Tobacco Use Status: Former Tobacco user Tobacco use type: Cigarette Years Smoked: 2 e-Cigarette/Vaping Use: Never Used service: No Current occupational status: employed Current occupation: [employer] Current occupational exposures/hazards: No Cognitive needs: No Hearing needs: No Vision needs: No Review of Systems Const Denies chills, Denies daytime sleepiness, Denies fatigue, Denies fever(s), Denies poor appetite, Denies snoring, Denies stops breathing during sleep, Denies weakness, Denies weight gain and Denies weight loss Eyes Denies loss of vision ENT Denies dizziness and Denies hearing loss Card Reports chest pain, Denies irregular heart rhythm, Denies claudication, Denies leg edema, Denies lightheadedness, Reports palpitations, Denies dyspnea on exertion and Denies orthopnea Resp Denies cough, Denies excessive phlegm production, Denies dyspnea on exertion, Denies snoring and Denies wheezing GI Denies abdominal pain, Denies hematochezia, Denies change in bowel habits, Denies nausea and Denies vomiting Denies urinary frequency and Denies dysuria Musc Denies arthralgias, Denies muscle weakness, Denies numbness and Denies other Skin/Breast Denies nail changes and Denies rash Neuro Denies Abnormal speech present, Denies dizziness, Denies loss of vision, Denies memory loss, Denies numbness and Denies weakness Psych Denies depression and Denies memory loss Endo Denies fatigue and Reports palpitations Flynn/Lymph Denies easy bruising Aller/Immun Denies wheezing Physical Exam Vital Signs: Last Vital Signs Pulse 75 12/26/24 13:15 BP 174/80 H 12/26/24 13:15 BMI result Body Mass Index 28.1 Const General: comfortable and no acute distress Orientation/consciousness: patient oriented x3 HEENT Other: Unremarkable Head: Yes normal to inspection Neck Neck: Yes normal visual inspection Chest Chest palpation & inspection: normal inspection of the chest Resp Auscultation: clear to auscultation bilaterally Cardio Palpation: normal PMI Heart sounds: S1 normal heart sound present, S2 normal heart sound present, no gallops, no murmurs and no rubs GI Palpation (GI): Soft to palpation Back/Spine/Pelvis Other: unremarkable Skin General skin exam: no rashes or lesions noted Neuro General: patient oriented x3 Speech: No Abnormal speech present Extrem General: Yes normal to inspection Psych Mental Status: mental status grossly normal Office Procedures EKG Details: EKG with underlying sinus rhythm at 75/Min; possible left atrial enlargement; left ventricular hypertrophy; [place] [id number], Complete Assessment & Plan Assessment & Plan (1) PAF (paroxysmal atrial fibrillation): Code(s): I48.0 - Paroxysmal atrial fibrillation Category: Medical Plan In the recent EKG from December 16, atrial fibrillation at a rate of 78/Min. In today's EKG, sinus rhythm at 75/Min. Not clear if it was precipitated because of influenza or if she indeed has paroxysmal atrial fibrillation. She needs comprehensive cardiac workup. Obtain echocardiogram, Holter and we will also get a coronary CTA. For medications, we can go up on the beta-[place] dosing. Switch to Toprol-XL 50 mg daily. Continue Eliquis. Follow-up after the above. Orders: Orders CA echo transthoracic complete Today Sam Kimble MD I48.0 - Paroxysmal atrial fibrillation CT Cardiac Coronary Angio Today Sam Kimble MD I25.10 - Atherosclerotic heart disease of [place] coronary artery without angina pectoris, I48.0 - Paroxysmal atrial fibrillation Basic Metabolic Panel Today Sam Kimble MD I48.0 - Paroxysmal atrial fibrillation ECG 7 day holter monitor Today Sam Kimble MD I48.0 - Paroxysmal atrial fibrillation, R00.2 - Palpitations Medications: New metoprolol succinate ER (Toprol XL) 50 mg PO DAILY 90 tabs 1RF Sam Kimble MD I48.0 - Paroxysmal atrial fibrillation Changed From glipizide ER 20 mg (2 x 10 mg) PO DAILY 90 days 180 tabs 3RF To glipizide ER 10 mg PO DAILY Helen Santana MD Discontinued metoprolol succinate ER Discontinued Reason: Doctor's Order 12.5 mg (1/2 x 25 mg) PO DAILY 90 tabs 3RF Coding Level of Care Code New Pt Level 4 (32904) Diagnoses PAF (paroxysmal atrial fibrillation) I48.0 CPT Codes EKG - CPT: 18957-[id number], Complete ([id number])
== END 2024-12-26 13:49 | disposition home or self-care (01) ==
PROVIDERS: PCP Family Medicine; Visit Provider Internal Medicine
DX: I48.0 Paroxysmal atrial fibrillation (principal)
CPT/HCPCS: 93010; 99204

== ENCOUNTER → 2024-12-26 13:13 | Outpatient (BNVA) | payer OTHER, SELFPAY | PROVIDERS: PCP Family Medicine; Visit Provider Internal Medicine | DX: I48.0 Paroxysmal atrial fibrillation (principal); Z79.01 Long term (current) use of anticoagulants | CPT/HCPCS: 93005 ==

== ENCOUNTER → 2025-01-20 08:06 | Outpatient (REF) | payer OTHER, SELFPAY ==
--- NOTE | 2025-01-20 08:10 | CA_ITS ---
Transthoracic Echocardiogram Patient (Last, First, Middle): Serenity Stapleton L Gender: Female Date of : 1965 Age: 59 Procedure Date: 01/20/2025 Procedure Type: Transthoracic Echocardiogram Location: OP Height: 175.26 cm Weight: 83.92 kg BSA: 2.00 m2 Heart Rate: bpm BP: 164 / 90 mmHg Cabin Crew: LUCY Referring MD: Sam Kimble MD Symptoms: I48.0 - Paroxysmal atrial fibrillation Study Quality: Fair, contrast ECG Rhythm: Sinus Conclusions: - The left ventricular systolic function is moderately decreased. The calculated ejection fraction is 41% by biplane method. - Prominent LV trabeculation. Cannot exclude non-compaction. - No obvious valvular pathology seen on this study. Findings Procedure Information Contrast agent, definity, is being given per protocol without apparent complications. Left Ventricle Normal left ventricular cavity size. There is normal left ventricular wall thickness. The left ventricular systolic function is moderately decreased. The calculated ejection fraction is 41% by biplane method. There is moderate global hypokinesis. Diastolic function is normal for age. Prominent LV trabeculation. Cannot exclude non-compaction. Right Ventricle Normal right ventricular cavity size and systolic function. Atria Both atria are normal in size. Aortic Valve There is a normal trileaflet aortic valve. There is no aortic valve stenosis. There is no aortic valve regurgitation. Mitral Valve The mitral valve appears normal. There is trace mitral valve regurgitation. There is no mitral valve stenosis. Pulmonic Valve The pulmonic valve is likely normal. Tricuspid Valve There is mild tricuspid valve regurgitation. There is no evidence of pulmonary hypertension. Great Vessels The asc aorta is normal in size. Venous The inferior vena cava is normal in size and collapses greater than 50% with inspiration. Pericardium/Pleural There is no evidence of pericardial effusion. Prior Study Comparison No prior study available for comparison. Recommendations, Care & Conclusions No obvious valvular pathology seen on this study. Measurements 2D Linear Measurements IVSd: 0.86 0.6-0.9/0.6-1.0 cm LVIDd: 4.89 3.9-5.3/4.2-5.9 cm LVIDd Index: 2.45 2.4-3.2/2.2-3.1 cm/m2 LVIDs: 3.61 2.0-3.6 cm LVPWd: 1.04 0.7-1.1 cm LA Diam: 3.80 2.7-3.8/3.0-4.0 cm LAIDs Index: 1.90 1.5-2.3 cm/m2 LV Mass: 203.53 67-162/88-224 g LV Mass Index: 101.76 43-95/49-115 g/m2 LVOT Diam: 2.10 3.0+(-)1.3 cm 2D Systolic Function EF 4C: 41.70 >55% EF 2C: 43.10 >55% EF BiP: 41.10 >55% Mitral Valve MV Pk E: 0.45 MV PK A: 0.65 MV Decel Time: 230.00 E/A: 0.70 E'Lateral: 7.40 E'Medial: 4.46 E/E' Med: 10.10 E/E' Lat: 6.10 PHT: 67.00 MVA PHT: 3.[address]: 1.96 Aortic Valve AoV Pk Trevor: 1.09 AoV Mn Trevor: 0.84 AoV VTI: 0.23 AoV Pk Grad: 5.00 Aov Mn Grad: 3.00 KEITH Cont.VTI: 2.32 LVOT LVOT Pk Trevor: 0.73 LVOT Mn Trevor: 0.57 LVOT VTI: 0.15 LVOT Pk Grad: 2.00 LVOT Mn Grad: 1.00 LVOT Diam: 2.10 LVOT Area: 3.46 Diastolic Function MV Pk E: 0.45 MV Pk A: 0.65 E/A: 0.70 E'Medial: 4.46 E/E' Med: 10.10 E' Laterial: 7.40 E/E' Lat: 6.10 Right Ventricle TAPSE (mm): 23.90 TVS' Trevor: 10.80 Tricuspid Valve TR Pk Trevor: 2.27 TR Pk Grad: 21.00 RA Press: 3.00 RVSP: 24.00 Great Vessels Aorta Sinus of Valsalva: 3.33 2.0-3.[address] [place]: 2.07 1.7-3.4 cm Ao Asc: 2.80 2.1-3.4 cm Updated in Other Vendor System with Status of Final Sam Kimble MD electronically signed on 01/20/2025 11:28:47 AM with status of Final
== END ==
LOC: HO.CARD 08:06
PROVIDERS: PCP Family Medicine; Visit Provider Internal Medicine
DX: I48.0 Paroxysmal atrial fibrillation (principal); R00.2 Palpitations
CPT/HCPCS: 93242; 93306; Q9957

== ENCOUNTER → 2025-01-20 08:10 | Outpatient (BNV) | payer OTHER, SELFPAY | PROVIDERS: PCP Family Medicine; Visit Provider Internal Medicine | DX: I42.8 Other cardiomyopathies (principal); I36.1 Nonrheumatic tricuspid (valve) insufficiency | CPT/HCPCS: 93306 ==

== ENCOUNTER 2025-02-04 09:15 | Outpatient (AMB) | payer OTHER, SELFPAY ==
--- NOTE | 2025-02-04 09:17 | A.OFFVIS_ITS ---
Vital Signs 02/04/25 09:18 Height 5 ft 9 in Weight 191 lb 12.835 oz BMI 28.3 BP 130/80 Blood Pressure Location Rt brachial Position Sitting Pulse 78 Pulse Source Pulse Oximeter Pulse Oximetry (%) 96 Oxygen Delivery Method Room Air Intake Visit Reasons: DM follow up Intake Note: Patient presents today for a follow-up on Type 2 Diabetes Mellitus: Last Diabetic eye exam was on: 12/27/2024 Last Podiatry exam was on: Patient does not see a Applied [employer] Physics Professor Most recent HbA1c: 9.7%, 02/04/2025 Random Glucose- 201 mg/dL, Today Cooler Conveyor Loader Required: No Accompanied by: Self / Same As Patient Allergies ibuprofen Allergy (Severe, Verified 02/04/25 09:18) breathing concerns Medication List - Last Reconciled 02/04/25 by Helen Santana MD acetaminophen 1,000 mg PO Q6H PRN albuterol sulfate 90 mcg/actuation (ProAir HFA) 2 puffs inhalation Q4-6H PRN 30 days blood-glucose meter (OneTouch Ultra2 Meter) As directed cholecalciferol (vitamin D3) 50 mcg PO DAILY 30 days FreeStyle Lancets (lancets) once daily NS FreeStyle Lite Meter (blood-glucose meter) once daily NS FreeStyle Lite Strips (blood sugar diagnostic) once daily NS gabapentin 300 mg PO BID 90 days glipizide ER 10 mg PO BID lancets (Onetouch Delica Safety Lancet) To test blood sugar daily, As directed, 90 days metformin 1,000 mg PO DAILY 90 days metoprolol succinate ER (Toprol XL) 50 mg PO DAILY OneTouch Ultra Test (blood sugar diagnostic) To test blood sugar daily, NS HPI Comments Details: 59 year old female with type 2 diabetes presenting for follow up Medical history: HTN, HLD and depression Initially diagnosed with T2DM- 56 years old Current medications: Metformin 1000mg once daily (intolerant of higher dosing), glipizde ER 10 mg daily (this was meant to be 20mg daily). POC A1C -9.7% today. 8.6% 12/18 from 8.2%. from 9.1%. Meter downloaded average glucose for past 2 weeks 188. Recent afib in setting of flu. Started on eliquis, toprol. Seeing cardiology. Feeling much improved Micro/macrovascular complications: neuropathy. On gabapentin Discussed ROLAND, statin recommendations Denies any low sugars or symptoms of lows. Has hypoglycemia awareness. Not much diabetes in the family Eye exam is due She has seen a formwork carpenter in the past with attention to diabetes Declines diabetic education ROS CONSTITUTIONAL: Denies weight loss, fever and chills. HEENT: Denies changes in vision and hearing. RESPIRATORY: Denies SOB and cough. CV: Denies palpitations and CP GI: Denies abdominal pain, nausea, vomiting and diarrhea. : Denies dysuria and urinary frequency. MSK: Denies new myalgia and joint pain. SKIN: Denies rash and pruritus. NEUROLOGICAL: Denies headache PSYCHIATRIC: Denies recent changes in mood. PHYSICAL EXAM: GENERAL: Alert and oriented x 3. NAD EYES: EOMI. Anicteric. HENT: Moist mucous membranes. Thyroid nodular right LUNGS: Clear to auscultation bilaterally. CARDIOVASCULAR: Regular rate and rhythm. No murmur. No JVD. ABDOMEN: Soft, non-tender +bs EXTREMITIES: No edema. Non-tender. SKIN: No rashes or lesions. Warm. NEUROLOGIC: No focal neurological deficits. CN II-XII grossly intact PSYCHIATRIC: Cooperative. Appropriate mood and affect [facility] Medical History Back disorder Arthritis Diabetes Asthma Surgical History H/O tubal ligation Family History Mother Cancer Sister Cancer Social History Housing: House Alcohol intake: current Alcohol intake frequency: a few times a month Alcohol type: wine and hard liquor Patient Tobacco Use Status: Former Tobacco user Tobacco use type: Cigarette Years Smoked: 2 e-Cigarette/Vaping Use: Never Used service: No Current occupational status: employed Current occupation: [employer] Current occupational exposures/hazards: No Cognitive needs: No Hearing needs: No Vision needs: No Physical Exam Vital Signs: Last Vital Signs Pulse 78 02/04/25 09:18 BP 130/80 02/04/25 09:18 Pulse Ox 96 02/04/25 09:18 Oxygen Delivery Method Room Air 02/04/25 09:18 BMI result Body Mass Index 28.3 Results AMB Hemoglobin A1c AMB Hemoglobin A1c 9.7 % Last Edit by GIAN Park on 02/04/25 09:37 Results Reviewed Results Reviewed: Laboratory Last Values Glucose (Clinic) 201 mg/dL (60-115) H 02/04/25 09:26 Assessment & Plan Assessment & Plan (1) Type 2 diabetes mellitus: Code(s): E11.9 - Type 2 diabetes mellitus without complications Category: Medical Qualifiers: Diabetes mellitus complication detail: with polyneuropathy Diabetes mellitus complication status: with neurologic complications Diabetes mellitus termination clerk insulin use: without usp use Qualified Code(s): E11.42 - Type 2 diabetes mellitus with diabetic polyneuropathy Plan: Uncontrolled. Improving control in past few weeks. Increase glipizide to 20mg daily. continue metformin 1000mg daily. Return in six weeks to review blood glucose readings. Call in interim as needed Orders: Orders AMB Hemoglobin A1c Today E11.42 - Type 2 diabetes mellitus with diabetic polyneuropathy Medications: Changed From glipizide ER 10 mg PO DAILY To glipizide ER 10 mg PO BID 180 tabs 3RF Coding Level of Care Code Est Pt Level 4 (09511) Diagnoses Type 2 diabetes mellitus with diabetic polyneuropathy, without long-term current use of insulin E11.42 Diabetes mellitus complication detail: with polyneuropathy Diabetes mellitus complication status: with neurologic complications Diabetes mellitus termination clerk insulin use: without termination clerk use
[2025-02-04 09:18] VITALS: BP 130/80; PULSE 78; O2SAT 96; BMI 28.3
[2025-02-04 09:31] LABS: Glucose, Whole Blood 201 mg/dL (60-115)
== END 2025-02-04 09:47 | disposition home or self-care (01) ==
LOC: HO.ENCR 09:16
PROVIDERS: PCP Family Medicine; Visit Provider Internal Medicine
DX: E11.42 Type 2 diabetes mellitus with diabetic polyneuropathy (principal)

== ENCOUNTER → 2025-02-04 09:15 | Outpatient (BNVA) | payer OTHER, SELFPAY | PROVIDERS: PCP Family Medicine; Visit Provider Internal Medicine | DX: E11.42 Type 2 diabetes mellitus with diabetic polyneuropathy (principal); Z79.84 Long term (current) use of oral hypoglycemic drugs | CPT/HCPCS: 82947; 83036 ==

== ENCOUNTER 2025-02-18 09:03 | Outpatient (REF) | payer OTHER, SELFPAY ==
[2025-02-18 10:09] LABS: Anion Gap 11 (12-20); Blood Urea Nitrogen 16 mg/dL (9-16); Calcium 9.6 mg/dL (8.4-10.2); Carbon Dioxide 25 mmol/L (22-29); Chloride 108 mmol/L (96-108); Estimated Glomerular Filt Rate > 60; Glucose Random 204 mg/dL (60-115); Potassium 4.4 mmol/L (3.3-5.1); Sodium 140 mmol/L (135-145)
== END 2025-02-18 09:04 | disposition home or self-care (01) ==
LOC: HO.LAB 09:03
PROVIDERS: PCP Family Medicine; Visit Provider Internal Medicine
DX: I48.0 Paroxysmal atrial fibrillation (principal)
CPT/HCPCS: 36415; 80048

== ENCOUNTER 2025-03-10 09:12 | Outpatient (AMB) | payer OTHER, SELFPAY ==
--- NOTE | 2025-03-10 09:26 | MHC.OFFVIS ---
Vital Signs 03/10/25 09:27 Height 5 ft 9 in Weight 191 lb 12.835 oz BMI 28.3 BP 120/80 Blood Pressure Location Lt brachial Position Sitting Pulse 60 Intake Visit Reasons: follow up/echo/holer/CTA Intake Note: Follow-up echo holter and CTA feeling good System Architect Required: No Mail Handlers Supervisor: Mail Handlers Supervisor Present Accompanied by: Spouse Allergies ibuprofen Allergy (Severe, Verified 02/04/25 09:18) breathing concerns Medication List - Last Reconciled 03/10/25 by Sam Kimble MD acetaminophen 1,000 mg PO Q6H PRN albuterol sulfate 90 mcg/actuation (ProAir HFA) 2 puffs inhalation Q4-6H PRN 30 days blood-glucose meter (OneTouch Ultra2 Meter) As directed cholecalciferol (vitamin D3) 50 mcg PO DAILY 30 days FreeStyle Lancets (lancets) once daily NS FreeStyle Lite Meter (blood-glucose meter) once daily NS FreeStyle Lite Strips (blood sugar diagnostic) once daily NS gabapentin 300 mg PO BID 90 days glipizide ER 10 mg PO BID lancets (Onetouch Delica Safety Lancet) To test blood sugar daily, As directed, 90 days metformin 1,000 mg PO DAILY 90 days metoprolol succinate ER 100 mg PO DAILY OneTouch Ultra Test (blood sugar diagnostic) To test blood sugar daily, NS HPI Comments Details: Serenity returns for follow-up. Recently seen in consultation regarding atrial fibrillation. In November 2024, she was not feeling well and was detected to have influenza and in that setting, it seems she also had atrial fibrillation. Seen at [facility] ER. She was having various symptoms like chest pressure, palpitations and overall not feeling well. Otherwise, no previous history of any cardiac issues. No coronary disease or myocardial infarction. Has many comorbidities including diabetes and possible hypertension. Since last seen, she has completed a Holter monitor, echocardiogram. She still feels some shortness of breath with activity. Occasional palpitations. No clear-cut angina. Exercise The patient reports limited exercise tolerance, experiencing dyspnea upon exertion such as climbing stairs. No formal exercise regimen or goals were discussed during the visit. [facility] Medical History Back disorder Arthritis Diabetes Asthma Surgical History H/O tubal ligation Family History Mother Cancer Sister Cancer Social History Housing: House Alcohol intake: current Alcohol intake frequency: a few times a month Alcohol type: wine and hard liquor Patient Tobacco Use Status: Former Tobacco user Tobacco use type: Cigarette Years Smoked: 2 e-Cigarette/Vaping Use: Never Used service: No Current occupational status: employed Current occupation: [employer] Current occupational exposures/hazards: No Cognitive needs: No Hearing needs: No Vision needs: No Review of Systems Const Denies chills, Denies fatigue, Denies fever(s), Denies frequent falls, Denies weakness, Denies weight gain and Denies weight loss ENT Denies dizziness Card Denies chest pain, Denies leg edema, Denies lightheadedness, Denies palpitations, Denies dyspnea, Denies dyspnea on exertion, Denies orthopnea and Denies other (loss of consciousness) Resp Denies cough, Denies dyspnea and Denies dyspnea on exertion GI Denies hematochezia and Denies change in stool character Musc Denies abnormal gait, Denies muscle weakness, Denies numbness, Denies radiating pain into limb and Denies tingling Neuro Denies abnormal gait, Denies dizziness, Denies frequent falls, Denies numbness, Denies tingling and Denies weakness Endo Denies fatigue and Denies palpitations Physical Exam Vital Signs: Last Vital Signs Pulse 60 03/10/25 09:27 BP 120/80 03/10/25 09:27 BMI result Body Mass Index 28.3 Const General: comfortable and no acute distress Orientation/consciousness: patient oriented x3 HEENT Other: Unremarkable Head: Yes normal to inspection Neck Neck: Yes normal visual inspection Chest Chest palpation & inspection: normal inspection of the chest Resp Auscultation: clear to auscultation bilaterally Cardio Palpation: normal PMI Heart sounds: S1 normal heart sound present, S2 normal heart sound present, no gallops, no murmurs and no rubs GI Palpation (GI): Soft to palpation Back/Spine/Pelvis Other: unremarkable Skin General skin exam: no rashes or lesions noted Neuro General: patient oriented x3 Extrem General: Yes normal to inspection Psych Mental Status: mental status grossly normal Assessment & Plan Assessment & Plan (1) PAF (paroxysmal atrial fibrillation): Code(s): I48.0 - Paroxysmal atrial fibrillation Category: Medical Plan: In the recent Holter monitor, underlying rhythm is sinus with an average rate of 90/Min. Evidence of atrial fibrillation rapid rate with a burden of about 29%. She was asked to increase beta-[place] dosing after the Holter but has not done that as yet. Reinforced the same today. Also she has stopped the Eliquis. There are no obvious bleeding concerns and hence resume it. Eventually, consider ablation. (2) Cardiomyopathy: Code(s): I42.9 - Cardiomyopathy, unspecified Category: Medical Plan: In the echocardiogram, LVEF is 41%. Prominent LV trabeculation. Could not exclude noncompaction. Recommend cardiac MRI for further evaluation. Plan Discussion Notes I discussed with the patient the necessity of resuming Eliquis for managing atrial fibrillation, highlighting the stroke risk mitigation. The patient was informed about the increased metoprolol dose to help regulate heart rate and reduce symptoms associated with excessive cardiac stress. We reviewed the need for an MRI to discern underlying causes of her heart failure symptoms, emphasizing its importance in guiding further treatment decisions. The patient consented to these recommendations, with plans to follow up within a 2-3 month timeframe after completing the MRI to reassess and adjust the treatment plan accordingly. Patient was informed and verbally consented to the use of an ambient scribe for clinic note documentation during this visit. Orders: Orders Basic Metabolic Panel Today I42.9 - Cardiomyopathy, unspecified MR cardiac morph fnct w/wo con Today I42.8 - Other cardiomyopathies, I42.9 - Cardiomyopathy, unspecified Medications: New apixaban (Eliquis) 5 mg PO BID 90 days 180 tabs 3RF Patient Instructions: - Resume taking Eliquis as prescribed. - Increase metoprolol dosage to 100 mg daily, as recommended. - Schedule and undergo an MRI of the heart to evaluate cardiac function. - Follow up in 2-3 months for reevaluation and review of MRI results. - Report any new symptoms or concerns, particularly unusual bleeding, to our office immediately. Coding Level of Care Code Est Pt Level 4 (65898) Complex EM visit Add On G2211 Diagnoses PAF (paroxysmal atrial fibrillation) I48.0 Cardiomyopathy I42.9
[2025-03-10 09:27] VITALS: BP 120/80; PULSE 60; BMI 28.3
== END 2025-03-10 09:49 | disposition home or self-care (01) ==
LOC: HO.HCS 09:12
PROVIDERS: PCP Family Medicine; Visit Provider Internal Medicine
DX: I48.0 Paroxysmal atrial fibrillation (principal); I42.9 Cardiomyopathy, unspecified
CPT/HCPCS: 99214

== ENCOUNTER → 2025-03-10 09:12 | Outpatient (BNVA) | payer OTHER, SELFPAY | PROVIDERS: PCP Family Medicine; Visit Provider Internal Medicine ==

== ENCOUNTER 2025-04-03 11:03 | Outpatient (REF) | payer OTHER, SELFPAY ==
[2025-04-03 11:56] LABS: Anion Gap 11 (12-20); Blood Urea Nitrogen 13 mg/dL (9-16); Carbon Dioxide 25 mmol/L (22-29); Chloride 108 mmol/L (96-108); Estimated Glomerular Filt Rate > 60; Glucose Random 164 mg/dL (60-115); Sodium 140 mmol/L (135-145)
== END 2025-04-03 11:04 | disposition home or self-care (01) ==
LOC: HO.LAB 11:03
PROVIDERS: PCP Family Medicine; Visit Provider Internal Medicine
DX: I42.9 Cardiomyopathy, unspecified (principal)
CPT/HCPCS: 36415; 80048

== ENCOUNTER 2025-04-15 14:38 | Outpatient (AMB) | payer OTHER, SELFPAY ==
--- NOTE | 2025-04-15 14:41 | A.OFFVIS_ITS ---
Vital Signs 04/15/25 14:43 Height 5 ft 9 in Weight 195 lb 12.328 oz BMI 28.9 BP 150/70 H Blood Pressure Location Lt brachial Position Sitting Pulse 60 Pulse Source Pulse Oximeter Intake Visit Reasons: 3 mth s/p cardiac MRI Missile Inspector Required: No Accompanied by: Significant Other Allergies ibuprofen Allergy (Severe, Verified 02/04/25 09:18) breathing concerns Medication List - Last Reconciled 04/15/25 by Sam Kimble MD acetaminophen 1,000 mg PO Q6H PRN albuterol sulfate 90 mcg/actuation (ProAir HFA) 2 puffs inhalation Q4-6H PRN 30 days apixaban (Eliquis) 5 mg PO BID 90 days blood-glucose meter (OneTouch Ultra2 Meter) As directed cholecalciferol (vitamin D3) 50 mcg PO DAILY 30 days FreeStyle Lancets (lancets) once daily NS FreeStyle Lite Meter (blood-glucose meter) once daily NS FreeStyle Lite Strips (blood sugar diagnostic) once daily NS gabapentin 300 mg PO BID 90 days glipizide ER 10 mg PO BID lancets (Onetouch Delica Safety Lancet) To test blood sugar daily, As directed, 90 days metformin 1,000 mg PO DAILY 90 days metoprolol succinate ER 100 mg PO DAILY OneTouch Ultra Test (blood sugar diagnostic) To test blood sugar daily, NS HPI Comments Details: Serenity returns for follow-up. Recently seen in consultation regarding atrial fibrillation. In November 2024, she was not feeling well and was detected to have influenza and in that setting, it seems she also had atrial fibrillation. Seen at [facility] ER. She was having various symptoms like chest pressure, palpitations and overall not feeling well. Otherwise, no previous history of any cardiac issues. No coronary disease or myocardial infarction. Has many comorbidities including diabetes and possible hypertension. She has completed a comprehensive workup including an echocardiogram, Holter, cardiac CTA/MRI. Still some shortness of breath with activity. Occasional palpitations. No angina. [facility] Medical History Back disorder Arthritis Diabetes Asthma Surgical History H/O tubal ligation Family History Mother Cancer Sister Cancer Social History Housing: House Alcohol intake: current Alcohol intake frequency: a few times a month Alcohol type: wine and hard liquor Patient Tobacco Use Status: Former Tobacco user Tobacco use type: Cigarette Years Smoked: 2 e-Cigarette/Vaping Use: Never Used service: No Current occupational status: employed Current occupation: [employer] Current occupational exposures/hazards: No Cognitive needs: No Hearing needs: No Vision needs: No Review of Systems Const Denies chills, Denies fatigue, Denies fever(s), Denies frequent falls, Denies weakness, Denies weight gain and Denies weight loss ENT Denies dizziness Card Denies chest pain, Denies leg edema, Denies lightheadedness, Denies palpitations, Denies dyspnea and Denies dyspnea on exertion Resp Denies cough, Denies dyspnea and Denies dyspnea on exertion GI Denies hematochezia Musc Denies abnormal gait, Denies muscle weakness, Denies numbness, Denies radiating pain into limb and Denies tingling Neuro Denies abnormal gait, Denies dizziness, Denies frequent falls, Denies numbness, Denies tingling and Denies weakness Endo Denies fatigue and Denies palpitations Physical Exam Vital Signs: Last Vital Signs Pulse 60 04/15/25 14:43 BP 150/70 H 04/15/25 14:43 BMI result Body Mass Index 28.9 Const General: comfortable and no acute distress Orientation/consciousness: patient oriented x3 HEENT Other: Unremarkable Head: Yes normal to inspection Neck Neck: Yes normal visual inspection Chest Chest palpation & inspection: normal inspection of the chest Resp Auscultation: clear to auscultation bilaterally Cardio Palpation: normal PMI Heart sounds: S1 normal heart sound present, S2 normal heart sound present, no gallops, no murmurs and no rubs GI Palpation (GI): Soft to palpation Back/Spine/Pelvis Other: unremarkable Skin General skin exam: no rashes or lesions noted Neuro General: patient oriented x3 Extrem General: Yes normal to inspection Psych Mental Status: mental status grossly normal Assessment & Plan Assessment & Plan (1) PAF (paroxysmal atrial fibrillation): Code(s): I48.0 - Paroxysmal atrial fibrillation Category: Medical Plan: In the recent Holter monitor, underlying rhythm is sinus with an average rate of 90/Min. Evidence of atrial fibrillation rapid rate with a burden of about 29%. Beta-[place] dose has been increased and continue that. Continue Eliquis. We discussed about EP evaluation/atrial fibrillation ablation and she is willing to consider that. May proceed. (2) Cardiomyopathy: Code(s): I42.9 - Cardiomyopathy, unspecified Category: Medical Plan: In the echocardiogram, LVEF is 41%. Prominent LV trabeculation. Could not exclude noncompaction. In the MRI, LVEF 46%. Noncompaction findings in the mid to apical lateral segments. 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 RVEF 53%. In the CTA, no definite coronary disease. Mildly enlarged LV. She does not have any overt heart failure symptoms or signs. With atrial fibrillation management, LVEF could improve. Continue beta-blockers for now. She is not on any regular diuretics. Other meds can be addressed in future visits if the LVEF remains low after ablation. Plan Discussion Notes I discussed the patient's atrial fibrillation and the option of undergoing an ablation procedure to manage the arrhythmia. The benefits of ablation were exp lained, emphasizing the potential to reduce episodes of tachycardia and improve the quality of life. The success rate of ablation is approximately 70-80%, although it is not guaranteed to eliminate the need for all medications. The importance of continuing blood thinners was stressed due to the associated stroke risk. We reviewed the alternative of maintaining lifelong medication therapy but noted potential side effects such as the patient's concern of memory loss. I recommended proceeding with an ablation as the preferred strategy, with consent obtained after discussing the procedure's risks, including bleeding and possible incomplete symptom relief. Arrangements have been made for follow-up with the conveyor belt repairer to adjust ongoing treatment post-procedure. Patient was informed and verbally consented to the use of an ambient scribe for clinic note documentation during this visit. Plan discussed with significant other. Orders: Referrals Cardiac Electrophysiology Referral I48.0 - Paroxysmal atrial fibrillation Patient Instructions: - Continue taking your current medication as prescribed each day. - Attend the appointment with the addressograph operator for AFib ablation evaluation. - Understand that ablation might not remove the need for all medications. - Remember to stay cautious with activities that might cause injury due to blood thinners. - Call the clinic if there are any new symptoms or concerns. Coding Level of Care Code Est Pt Level 4 (59145) Complex EM visit Add On G2211 Diagnoses PAF (paroxysmal atrial fibrillation) I48.0 Cardiomyopathy I42.9
[2025-04-15 14:43] VITALS: BP 150/70; PULSE 60; BMI 28.9
== END 2025-04-15 15:22 | disposition home or self-care (01) ==
LOC: HO.HCS 14:38
PROVIDERS: PCP Family Medicine; Visit Provider Internal Medicine
DX: I48.0 Paroxysmal atrial fibrillation (principal); I42.9 Cardiomyopathy, unspecified
CPT/HCPCS: 99214

== ENCOUNTER → 2025-04-15 14:38 | Outpatient (BNVA) | payer OTHER, SELFPAY | PROVIDERS: PCP Family Medicine; Visit Provider Internal Medicine ==

== ENCOUNTER 2025-09-09 08:42 | Outpatient (AMB) | payer OTHER, SELFPAY ==
[2025-09-09 08:47] VITALS: BP 140/80; PULSE 76
--- NOTE | 2025-09-09 08:47 | A.OFFVIS_ITS ---
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 Accompanied by: spouse Allergies ibuprofen Allergy (Severe, Verified 09/09/25 08:51) breathing concerns Medication List - Last Reconciled 09/09/25 by Sam Kimble MD albuterol sulfate 90 mcg/actuation (ProAir HFA) 2 puffs inhalation Q4-6H PRN 30 days apixaban (Eliquis) 5 mg PO BID 90 days blood-glucose meter (OneTouch Ultra2 Meter) As directed cholecalciferol (vitamin D3) 50 mcg PO DAILY 30 days FreeStyle Lancets (lancets) once daily NS FreeStyle Lite Meter (blood-glucose meter) once daily NS FreeStyle Lite Strips (blood sugar diagnostic) once daily NS glipizide ER 10 mg PO BID lancets (Onetouch Delica Safety Lancet) To test blood sugar daily, As directed, 90 days metformin 1,000 mg PO DAILY 90 days metoprolol succinate ER 100 mg PO DAILY OneTouch Ultra Test (blood sugar diagnostic) To test blood sugar daily, NS HPI Comments Details: Serenity returns for follow-up regarding atrial fibrillation. In November 2024, she was not feeling well and was detected to have influenza and in that setting, it seems she also had atrial fibrillation. Seen at [facility] ER. She was having various symptoms like chest pressure, palpitations and overall not feeling well. Otherwise, no previous history of any cardiac issues. No coronary disease or myocardial infarction. Has many comorbidities including diabetes and possible hypertension. She has completed a comprehensive workup including an echocardiogram, Holter, cardiac CTA/MRI. She was referred to EP and underwent ablation for atrial fibrillation and atypical flutter few days back. Overall, she states she feels good. No new concerns. [facility] Medical History (Updated 09/09/25 @ 09:37 by Sam Kimble MD) Primary hypertension Back disorder Arthritis Diabetes Asthma Surgical History (Updated 09/09/25 @ 08:51 by Hever Ndiaye CNA) History of cardiac ablation H/O tubal ligation Family History Mother Cancer Sister Cancer Social History Housing: House Alcohol intake: current Alcohol intake frequency: a few times a month Alcohol type: wine and hard liquor Patient Tobacco Use Status: Former Tobacco user Tobacco use type: Cigarette Years Smoked: 2 e-Cigarette/Vaping Use: Never Used service: No Current occupational status: employed Current occupation: [email or web address] Current occupational exposures/hazards: No Cognitive needs: No Hearing needs: No Vision needs: No Review of Systems Const Denies daytime sleepiness, Denies difficulty sleeping, Denies snoring, Denies stops breathing during sleep and Denies weakness Card Denies chest pain, Denies rapid heart rate, Denies irregular heart rhythm, Denies claudication, Denies leg edema, Denies lightheadedness, Reports palpitations, Denies dyspnea, Denies dyspnea on exertion, Denies orthopnea, Denies paroxysmal nocturnal dyspnea and Denies slow heart rate Resp Denies cough, Denies dyspnea, Denies dyspnea on exertion and Denies snoring GI Reports no additional complaints, Denies hematochezia, Denies change in stool character and Denies dyspepsia Musc Denies abnormal gait, Denies muscle weakness and Denies numbness Neuro Denies abnormal gait, Denies numbness and Denies weakness Endo Reports palpitations Physical Exam Vital Signs: Last Vital Signs Pulse 76 09/09/25 08:47 BP 140/80 H 09/09/25 08:47 BMI result Body Mass Index 30.0 Const General: comfortable and no acute distress Orientation/consciousness: patient oriented x3 HEENT Other: Unremarkable Head: Yes normal to inspection Neck Neck: Yes normal visual inspection Chest Chest palpation & inspection: normal inspection of the chest Resp Auscultation: clear to auscultation bilaterally Cardio Palpation: normal PMI Heart sounds: S1 normal heart sound present, S2 normal heart sound present, no gallops, no murmurs and no rubs GI Palpation (GI): Soft to palpation Back/Spine/Pelvis Other: unremarkable Skin General skin exam: no rashes or lesions noted Neuro General: patient oriented x3 Extrem General: Yes normal to inspection Psych Mental Status: mental status grossly normal Assessment & Plan Assessment & Plan (1) PAF (paroxysmal atrial fibrillation): Code(s): I48.0 - Paroxysmal atrial fibrillation Category: Medical Plan: Status post ablation of atrial fibrillation/atypical flutter. We will check a Holter monitor for any recurrent arrhythmias. Otherwise, continue beta-blockers and anticoagulation. (2) Cardiomyopathy: Code(s): I42.9 - Cardiomyopathy, unspecified Category: Medical Plan: In the echocardiogram, LVEF is 41%. Prominent LV trabeculation. Could not exclude noncompaction. In the MRI, LVEF 46%. Noncompaction findings in the mid to apical lateral segments. 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 RVEF 53%. In the CTA, no definite coronary disease. Mildly enlarged LV. She does not have any overt heart failure symptoms or signs. With atrial fibrillation management, LVEF could improve. Remains on beta-blockers. May add Entresto as the blood pressure is also high. Not on any regular diuretics. Recheck echocardiogram before next visit. Might improve as she is now post ablation of atrial fibrillation. (3) Primary hypertension: Code(s): I10 - Essential (primary) hypertension Category: Medical Plan: Start Entresto considering the fact that she has elevated blood pressure as well as cardiomyopathy. Check labs few days after starting this. Plan Discussion Notes During the visit, we discussed the patient's recent cardiac ablation and the need for continued medication with metoprolol and Eliquis. We also talked about the importance of monitoring blood pressure and the potential need for medication adjustments if hypertension persists. A follow-up echocardiogram and heart monitor are planned in three months to assess heart function and check for any recurrence of atrial fibrillation. Patient was informed and verbally consented to the use of an ambient scribe for clinic note documentation during this visit. Orders: Orders Basic Metabolic Panel 1 Week I42.9 - Cardiomyopathy, unspecified NT Pro B Type Natriuretic Pept 1 Week I42.9 - Cardiomyopathy, unspecified CA echo transthoracic complete 3 Months I42.9 - Cardiomyopathy, unspecified ECG 7 day holter monitor 3 Months I48.0 - Paroxysmal atrial fibrillation Medications: New sacubitril-valsartan 24-26 mg (Entresto) 1 tab PO BID 180 tabs 1RF 90 days Patient Instructions: - Continue taking metoprolol and Eliquis as prescribed. - Monitor your blood pressure regularly. - Schedule a follow-up echocardiogram and heart monitor in three months. Coding Level of Care Code Est Pt Level 4 (07331) Complex EM visit Add On G2211 Diagnoses PAF (paroxysmal atrial fibrillation) I48.0 Cardiomyopathy I42.9 Primary hypertension I10
== END 2025-09-09 09:17 | disposition home or self-care (01) ==
LOC: HO.HCS 08:43
PROVIDERS: PCP Family Medicine; Visit Provider Internal Medicine
DX: I48.0 Paroxysmal atrial fibrillation (principal); I42.9 Cardiomyopathy, unspecified; I10 Essential (primary) hypertension
CPT/HCPCS: 99214; G2211